=== PATIENT | male | born 1990 | race Caucasian/White ===

== ENCOUNTER 2017-11-05 19:22 | Emergency (ER) | payer MEDICAID, SELFPAY ==
[2017-11-05 19:24] VITALS: BP 129/74; PULSE 72; RESP 16; TEMP 36.9; O2SAT 97; BMI 27.1
--- NOTE | 2017-11-05 20:19 | ED.VISSUMM ---
- ER Visit Summary Date of Service: 11/05/17 Chief Complaint: Dental pain History of Present Illness: The patient is a 27 M with dental pain for several weeks in the right maxillary region. He has a broken tooth in the area. No swelling. No trouble breathing, talking, or swallowing. Physical Examination: Right maxillary molar fractured secondary to underlying decay. No sign of abscess. No trismus. No tongue elevation. Airway intact. No lymphadenopathy. Skin normal. Neck shows good range of motion. Test Results: None indicated. Emergency Department Course and Treatment: Patient will start a course of clindamycin. I will also prescribe a course of naproxen. He received 2 [place] here. I advised that we will not prescribe narcotics for this. Has follow-up with dental next week. Treatment Plan: As above Disposition: Discharged Impression: 1. Toothache This note was generated with [employer] dictation software. It may contain incorrect words, spelling, and punctuation that were not noted in review of the chart prior to signing ED Disposition - Plan for ED Patient: Chief Complaint: Dental Referrals: Carlo Callejas MD [Primary Care Provider] -
--- NOTE | 2017-11-05 20:21 | ED.DEP ---
ED Disposition - Plan for ED Patient: Chief Complaint: Dental Instructions: ED Tooth Pain Prescriptions: Naproxen [Naprosyn] 500 mg PO BID #14 tab Clindamycin HCl [Cleocin] 300 mg PO Q6H #40 cap Additional Instructions: your dentist
[2017-11-05] MEDS: Clindamycin HCl 150 MG Capsule 300 MG PO (20:29)
[2017-11-05] MEDS: HYDROcodone Bitartrate/Apap 5/325 Tablet PO (20:29)
[2017-11-05 20:32] VITALS: BP 132/86; PULSE 78; RESP 18; O2SAT 99
== END 2017-11-05 20:36 | disposition home or self-care (01) ==
LOC: ED 20:31
PROVIDERS: Emergency Provider Emergency Medicine; Family Provider Family Medicine; PCP Family Medicine
DX: K08.89 Other specified disorders of teeth and supporting structures (principal); K02.9 Dental caries, unspecified
CPT/HCPCS: 99283

== ENCOUNTER 2017-12-03 20:23 | Emergency (ER) | payer MEDICAID, SELFPAY ==
[2017-12-03 20:24] VITALS: BP 135/74; PULSE 67; RESP 16; TEMP 36.7; O2SAT 98; BMI 27.8
--- NOTE | 2017-12-03 22:47 | ED.VISSUMM ---
- ER Visit Summary Date of Service: 12/03/17 Chief Complaint: Right wrist laceration History of Present Illness: The patient is a 27 M presenting with laceration to his right wrist. Patient states that he was looking through a bag and he was not aware that there was a knife in the bag. It cut his right wrist. This was accidental. His tetanus is up-to-date. No other injuries. Physical Examination: Vitals are stable. Patient is afebrile. Alert no acute distress. HEENT exam is unremarkable. Lungs are clear and equal bilaterally. Heart is regular rate and rhythm. Extremities right lateral wrist 4 cm laceration, tendon function is normal, normal cap refill, normal pulses Skin is warm and dry. No focal neurologic deficit. Remainder of exam is unremarkable. Emergency Department Course and Treatment: Laceration was repaired under sterile conditions. Anesthetized with lidocaine, irrigated with saline. 5, 4-0 simple sutures were placed. Patient tolerated this well. Advised wound care instructions. Advised to follow-up with PCP. Advised return to ED for worsening complaints. Disposition: Discharge home Impression: Right wrist laceration, laceration repair This note was generated with [employer] dictation software. It may contain incorrect words, spelling, and punctuation that were not noted in review of the chart prior to signing ED Disposition - Plan for ED Patient: Chief Complaint: Laceration Instructions: ED Laceration Hand Referrals: Carlo Callejas MD [Primary Care Provider] -
--- NOTE | 2017-12-03 22:51 | ED.DCSUM_ITS ---
- ER Visit Summary Date of Service: 12/03/17 Chief Complaint: Right wrist laceration History of Present Illness: The patient is a 27 M presenting with laceration to his right wrist. Patient states that he was looking through a bag and he was not aware that there was a knife in the bag. It cut his right wrist. This was accidental. His tetanus is up-to-date. No other injuries. Physical Examination: Vitals are stable. Patient is afebrile. Alert no acute distress. HEENT exam is unremarkable. Lungs are clear and equal bilaterally. Heart is regular rate and rhythm. Extremities right lateral wrist 4 cm laceration, tendon function is normal, normal cap refill, normal pulses Skin is warm and dry. No focal neurologic deficit. Remainder of exam is unremarkable. Emergency Department Course and Treatment: Laceration was repaired under sterile conditions. Anesthetized with lidocaine, irrigated with saline. 5, 4- 0 simple sutures were placed. Patient tolerated this well. Advised wound care instructions. Advised to follow-up with PCP. Advised return to ED for worsening complaints. Disposition: Discharge home Impression: Right wrist laceration, laceration repair This note was generated with [employer] dictation software. It may contain incorrect words, spelling, and punctuation that were not noted in review of the chart prior to signing ED Disposition - Plan for ED Patient: Chief Complaint: Laceration Instructions: ED Laceration Hand Referrals: Carlo Callejas MD [Primary Care Provider] -
[2017-12-03 22:55] VITALS: RESP 16
== END 2017-12-03 22:56 | disposition home or self-care (01) ==
PROVIDERS: Emergency Provider Emergency Medicine; Family Provider Family Medicine; PCP Family Medicine
DX: S61.511A Laceration without foreign body of right wrist, initial encounter (principal); W26.0XXA Contact with knife, initial encounter; Y93.89 Activity, other specified; Y92.89 Other specified places as the place of occurrence of the external cause; Y99.8 Other external cause status
CPT/HCPCS: 12002; 99284

== ENCOUNTER 2018-02-16 15:38 | Emergency (ER) | payer MEDICAID, SELFPAY ==
[2018-02-16 15:40] VITALS: BP 126/78; PULSE 115; RESP 17; TEMP 37.3; O2SAT 96; BMI 27.8
[2018-02-16] MEDS: HYDROcodone Bitartrate/Apap 5/325 Tablet PO (16:02)
--- NOTE | 2018-02-16 16:02 | ED.VISSUMM ---
- ER Visit Summary Date of Service: 02/16/18 Chief Complaint: Laceration History of Present Illness: The patient is a [address] Callejas. His tetanus is up-to-date. Reports just prior to coming emergency department a storm door came down on his right arm and broke. He reports he has pain over his biceps Zeta 10 at worst and 7-10 currently. Is worsened by movement relieved by rest. Denies any paresthesias distally. Physical Examination: Vitals: Stable. Afebrile. General: Well-nourished and well-developed. Head: Normocephalic atraumatic. Neck: Supple, no lymphadenopathy. No JVD. Nontender. Cardiovascular: Regular rate and rhythm. No murmurs. Respiratory: No respiratory distress. Clear to auscultation bilaterally. Abdominal: Soft, nontender, nondistended, normal bowel sounds. No guarding, rebound, or peritoneal signs. Back: Nontender. Extremities: Contusion over his bicep. There are 4 1.5's jagged lacerations with loss of tissue that extended to subcutaneous tissue only. He also has a 3 cm superficial tissue loss to the thenar eminence on the right. He is neurovascular intact distally's. There is no active bleeding.. Skin: Normal color, no rash. Neurologic: Alert and oriented ?3. Cranial nerves II through XII are intact. Normal strength and sensation. Psych: Normal affect. Test Results: X-ray shows no foreign body. Emergency Department Course and Treatment: I discussed the patient treatment options and he has opted to let this heal by secondary intention. I feel that this is a reasonable course of action. Treatment Plan: Patient be discharged instructions keep the area clean and covered. Follow-up his primary care physician in 10-14 days if not improving. Disposition: To home in improved and stable condition. Impression: 1. Multiple lacerations right arm, not repaired. 2. Contusion right arm. This note was generated with [employer] dictation software. It may contain incorrect words, spelling, and punctuation that were not noted in review of the chart prior to signing ED Disposition - Plan for ED Patient: Disposition: Home or Assisted Living Chief Complaint: Laceration Instructions: ED Laceration Small Superf No Sutr Referrals: Carlo Callejas MD [Primary Care Provider] - 10-14 Days if not better
[2018-02-16 16:24] VITALS: PULSE 128; RESP 16; O2SAT 98
== END 2018-02-16 16:25 | disposition home or self-care (01) ==
LOC: ED 16:06
PROVIDERS: Emergency Provider Emergency Medicine; Family Provider Family Medicine; PCP Family Medicine
DX: S51.811A Laceration without foreign body of right forearm, initial encounter (principal); S40.021A Contusion of right upper arm, initial encounter; W25.XXXA Contact with sharp glass, initial encounter; Y93.89 Activity, other specified; Y92.89 Other specified places as the place of occurrence of the external cause; Y99.8 Other external cause status
CPT/HCPCS: 73060; 99282

== ENCOUNTER 2018-12-07 23:12 | Emergency (ER) | payer BC, SELFPAY ==
[2018-12-07 23:13] VITALS: BP 132/58; PULSE 65; RESP 18; TEMP 36.7; O2SAT 99; BMI 30.6
--- NOTE | 2018-12-07 23:24 | ED.DCSUM_ITS ---
History of Present Illness Chief Complaint: Abd Pain Informant: Patient Narrative: She stated last week he noticed some sharp pain in his bellybutton. Yesterday he noticed a little bit of a hernia bulge. He is never had that before. He was able to reduce it tonight when his girlfriend pointed out. He feels better now. Coming in for further evaluation of that. Never had this before. Current severity is mild. Past Medical History - Allergies and Home Meds Allergies/Adverse Reactions: Allergies acetaminophen [From Tylenol] Allergy (Verified 12/07/18 23:12) Rash cefaclor [From Ceclor] Allergy (Verified 12/07/18 23:12) Rash Primary Care Physician: Sasha Grant MD [Primary Care Provider] - Prior records reviewed: Yes Past Medical History: - - Viewed Surgical History: noncontributory Smoking Status: Smoker, status unknown Alcohol: None Drugs: None Review of Systems General: Denies: Chills, Fever, Sweats Eyes: Denies: Visual changes - bilaterally, Diplopia ENT: Denies: Rhinorrhea, Sore throat Cardiovascular: Denies: Chest pain, Palpitations Respiratory: Denies: Dyspnea, Cough, Dyspnea on exertion Gastrointestinal: Reports: Abdominal pain. Denies: Nausea, Vomiting, Diarrhea, Melena, Hematochezia Genitourinary: Denies: Dysuria, Hematuria, Frequency Musculoskeletal: Denies: Back pain, Extremity Pain Skin: Denies: Rash, Wounds Neurological: Denies: Headache, Weakness, Numbness Physical Exam Vital Signs/Narrative: Vital Signs Temp Pulse Resp BP Pulse Ox 12/07/18 23:13 98.1 F 65 18 132/58 H 99 General: Well nourished, Well developed, No Acute Distress Head: Normocephalic, Atraumatic Eyes: Perrl, EOMI ENT: Moist mucous membranes, No rhinorrhea Neck: Supple, Nontender Cardiovascular: Regular rate, Regular rhythm, No murmurs Respiratory: No distress, CTA bilaterally, Chest nontender Abdomen: Soft, Nontender, Nondistended, Normal bowel sounds Back: Nontender, Normal Inspection Extremities: Nontender, No edema Skin: Normal color, No rash Neurological: Alert, Oriented x3, Cranial nerves II-XII grossly intact, Normal Strength, Normal Sensation Psychological: Normal affect, Normal Mood Diagnostic/Tx/Re-eval - Medical Decision Making Patient's umbilicus appears normal. He stated that he reduced it. He is been able to reduce it therefore I taught him how to continue to do that. He will follow-up with general surgeon and try to avoid things that increases intra- abdominal pressure. ED Disposition - Plan for ED Patient: Disposition: [facility] Diagnosis: Umbilical hernia Instructions: What Is a Hernia? Referrals: Rashaad Rivera MD [STAFF PHYSICIAN] -
--- NOTE | 2018-12-07 23:29 | ED.RN ---
THIS NURSE REVIEWED D/C INSTRUCTIONS WITH PT AND VISITOR. PT VERBALIZED UNDERSTANDING OF INSTRUCTIONS. PT DENIES FURTHER NEEDS OR QUESTIONS AT THIS TIME. PT AMBULATES FROM ROOM ON OWN WITHOUT ASSISTANCE FROM STAFF
== END 2018-12-07 23:30 | disposition home or self-care (01) ==
PROVIDERS: Emergency Provider Emergency Medicine; Family Provider Internal Medicine; PCP Internal Medicine
DX: K42.9 Umbilical hernia without obstruction or gangrene (principal)
CPT/HCPCS: 99282

== ENCOUNTER 2020-07-15 09:58 | Emergency (ER) | payer MEDICAID, SELFPAY ==
[2020-07-15 09:59] VITALS: BP 162/81; PULSE 81; RESP 16; TEMP 35.8; O2SAT 100; BMI 29.4
--- NOTE | 2020-07-15 10:17 | EKG12_ITS ---
Test Reason : Blood Pressure : / mmHG Vent. Rate : 080 BPM Atrial Rate : 080 BPM P-R Int : 180 ms QRS Dur : 102 ms QT Int : 378 ms P-R-T Axes : 048 031 022 degrees QTc Int : 435 ms Normal sinus rhythm Normal ECG Confirmed by SIGRID MURRY, KELVIN ([id number]), international editorial producer CASSIE WINSTON ([id number]) on 07/19/2020 10:48:33 AM Referred By: RALF Confirmed By:KELVIN MATTA MD
--- NOTE | 2020-07-15 10:17 | CT_ITS ---
STUDY: CTA CHEST REASON FOR EXAM: Male, 30 years old. SOB/trouble taking full breath worse when supine, right back pain x 1 week, asthma. RADIATION DOSAGE (If Supplied By Facility): CTDIvol = ( 10.01 ) mGy, DLP = ( 515.65 ) mGycm TECHNIQUE: The examination was performed with the intravenous administration of IV 100mL Isovue-370. Post-processing of the angiographic images was performed, with multiplanar reformation and 3D reconstruction. Individualized dose optimization techniques were used for this CT. COMPARISON: None. FINDINGS: There are multiple intraluminal filling defects in branches of the right lower lobe pulmonary artery in keeping with pulmonary emboli. Smaller filling defects are seen in branches of the left lower lobe pulmonary artery Normal thoracic aorta and visualized great vessels. There is no demonstrated aortic dissection. Normal heart and pericardium. Normal mediastinum. Normal hilar regions. Normal visualized trachea and bronchi. The lungs are well expanded. Normal pulmonary parenchyma. Normal pleura. Normal chest wall structures. Normal osseous structures. Small hiatal hernia. CT/CTA Chest W/WO Contrast IMPRESSION: Pulmonary emboli in branches of both right and left lower lobe pulmonary arterial branches more prominent on the right side. Electronically Signed: Jaylan Huerta MD at 11:23 EST , Service support ,
--- NOTE | 2020-07-15 10:17 | ED.VIS.GEN ---
History of Present Illness Chief Complaint: General Illness Informant: Patient Narrative: 30-year-old male presenting for the evaluation of dyspnea. Patient states for about 2 weeks he has been experiencing intermittent pain in the right posterior chest and right mid axillary lower ribs area. Not worse with touch or movement. He states it does seem to come on when he takes a deep breath. He states he has not felt like he can take a satisfying breath. His symptoms are significantly worse at night when he lays down. During the day he states he generally feels okay. He went to urgent care last night was given prednisone as he has a history of asthma and told him that if he is not feeling better he should come to emergency to be seen. Patient states he works out regularly has not noticed a significant decrease in his ability to work out. No weight gain weight loss. No recent travel. No recent fever. Past Medical History - Allergies and Home Meds Allergies/Adverse Reactions: Allergies acetaminophen [From Tylenol] Allergy (Verified 07/15/20 09:59) Rash cefaclor [From Ceclor] Allergy (Verified 07/15/20 09:59) Rash Primary Care Physician: Sasha Grant MD [Primary Care Provider] - Past Medical History: - - Asthma Surgical History: noncontributory Lives: Spouse/ Significant Other Smoking Status: Never smoker Drugs: None Review of Systems General: Denies: Chills, Fever, Sweats Eyes: Denies: Visual changes - bilaterally, Diplopia ENT: Denies: Rhinorrhea, Sore throat Cardiovascular: Reports: Chest pain. Denies: Palpitations Respiratory: Reports: Dyspnea. Denies: Cough, Dyspnea on exertion Gastrointestinal: Denies: Abdominal pain, Nausea, Vomiting, Diarrhea, Melena, Hematochezia Genitourinary: Denies: Dysuria, Hematuria, Frequency Musculoskeletal: Denies: Back pain, Extremity Pain Skin: Denies: Rash, Wounds Neurological: Denies: Headache, Weakness, Numbness Physical Exam Vital Signs/Narrative: Vital Signs Temp Pulse Resp BP Pulse Ox 07/15/20 09:59 96.5 F L 81 16 162/81 H 100 Inital Vital Signs reviewed: Yes General: Well nourished, Well developed, No Acute Distress Head: Normocephalic, Atraumatic Eyes: Perrl, EOMI ENT: Moist mucous membranes, No rhinorrhea Neck: Supple, Nontender Cardiovascular: Regular rate, Regular rhythm, No murmurs Respiratory: No distress, CTA bilaterally, Chest nontender Abdomen: Soft, Nontender, Nondistended, Normal bowel sounds Back: Nontender, Normal Inspection Extremities: Nontender, No edema Skin: Normal color, No rash Neurological: Alert, Oriented x3, Cranial nerves II-XII grossly intact, Normal Strength, Normal Sensation Psychological: Normal affect, Normal Mood Diagnostic/Tx/Re-eval Clinical Impression(s) from Imaging Studies Chest CTA 07/15/20 10:17 IMPRESSION: Pulmonary emboli in branches of both right and left lower lobe pulmonary arterial branches more prominent on the right side. Electronically Signed: Jaylan Huerta MD at 11:23 EST , Service support , Laboratory Last Values WBC 11.0 K/mm3 (4.4-11.0) 07/15/20 10:20 RBC 4.61 M/mm3 (4.6-6.2) 07/15/20 10:20 Hgb 14.1 g/dL (13.0-16.5) 07/15/20 10:20 Hct 43.1 % (40-54) 07/15/20 10:20 MCV 93.5 fL (80-94) 07/15/20 10:20 MCH 30.6 pg (27.0-32.0) 07/15/20 10:20 MCHC 32.7 g/dL (32-36) 07/15/20 10:20 RDW Std Deviation 44.2 fl (35.1-43.9) H 07/15/20 10:20 RDW Coeff of Finesse 12.8 % (11.6-14.6) 07/15/20 10:20 Plt Count 211 K/mm3 (150-450) 07/15/20 10:20 MPV 10.1 fl (6.2-12.0) 07/15/20 10:20 Sodium 141 mmol/L (136-145) 07/15/20 10:20 Potassium 3.3 mmol/L (3.5-5.1) L 07/15/20 10:20 Chloride 107 mmol/L (98-107) 07/15/20 10:20 Carbon Dioxide 30.0 mmol/L (21.0-32.0) 07/15/20 10:20 Anion Gap 4 (5-15) L 07/15/20 10:20 BUN 12 mg/dL (7-18) 07/15/20 10:20 Creatinine 1.00 mg/dL (0.70-1.30) 07/15/20 10:20 Estim Creat Clear Calc 115.04 ml/min 07/15/20 10:20 Est GFR (MDRD) Af Amer 113 mL/min (>60) 07/15/20 10:20 Est GFR (MDRD) Non-Af 94 mL/min (>60) 07/15/20 10:20 BUN/Creatinine Ratio 12.1 RATIO (10-20) 07/15/20 10:20 Glucose 77 mg/dL (74-106) 07/15/20 10:20 Calcium 9.0 mg/dL (8.5-10.1) 07/15/20 10:20 Total Bilirubin 0.60 mg/dL (0.20-1.00) 07/15/20 10:20 AST 48 U/L (15-37) H 07/15/20 10:20 ALT 102 U/L (16-61) H 07/15/20 10:20 Alkaline Phosphatase 110 U/L (45-117) 07/15/20 10:20 Troponin I < 0.015 ng/mL (<0.045) 07/15/20 10:20 Total Protein 7.8 g/dL (6.4-8.2) 07/15/20 10:20 Albumin 4.1 g/dL (3.2-5.0) 07/15/20 10:20 Globulin 3.7 g/dL (2.2-4.2) 07/15/20 10:20 Albumin/Globulin Ratio 1.1 RATIO (0.9-2.4) 07/15/20 10:20 - EKG Initial EKG Interpretation: Sinus Rhythm - EKG demonstrates normal sinus rhythm at a rate of 80 without concerning features of ACS or ectopy. - Medical Decision Making Patient's labs are rather unremarkable. EKG no demonstrates no evidence of ACS or right heart strain. CTA of the chest demonstrates bilateral pulmonary embolisms. Patient is satting 99% on room air. He is not having any increased work of breathing. He does not know of any genetic predisposition to DVT/PE and he denies any current risk factors such as travel hormonal use or recent surgeries etc. Patient will be started on Eliquis. He will follow-up with his doctor return if worsening or concerns ED Disposition - Plan for ED Patient: Disposition: Home or Assisted Living Diagnosis: Pulmonary embolism Prescriptions: Apixaban [Eliquis] 5 mg PO BID #74 tab Prescription Printed Referrals: Sasha Grant MD [Primary Care Provider] - 1 Week
--- NOTE | 2020-07-15 10:19 | NURSING ---
NO OLD EKGS
[2020-07-15 10:30] LABS: Hematocrit 43.1 % (40-54); Hemoglobin 14.1 g/dL (13.0-16.5); Mean Corp Hgb Conc 32.7 g/dL (32-36); Mean Corpuscular Hgb 30.6 pg (27.0-32.0); Mean Corpuscular Volume 93.5 fL (80-94); Mean Platelet Vol. 10.1 fl (6.2-12.0); Platelet Count 211 K/mm3 (150-450); RBC Distribution Width CV 12.8 % (11.6-14.6); RBC Distribution Width SD 44.2 fl (35.1-43.9); Red Blood Count 4.61 M/mm3 (4.6-6.2)
[2020-07-15 10:52] LABS: ALB/GLOB Ratio 1.1 RATIO (0.9-2.4); AST(SGOT) 48 U/L (15-37); Alanine Aminotransfer ALT/SGPT 102 U/L (16-61); Albumin, Serum 4.1 g/dL (3.2-5.0); Alkaline Phosphatase 110 U/L (45-117); Anion Gap 4 (5-15); BUN 12 mg/dL (7-18); BUN/Creat Ratio 12.1 RATIO (10-20); Chloride 107 mmol/L (98-107); EST Glomerular Filtration Rate 94 mL/min (>60); Est Glom Filt Rate - Afr Amer 113 mL/min (>60); Estimated Creatinine Clearance 115.04 ml/min; Globulin 3.7 g/dL (2.2-4.2); Glucose 77 mg/dL (74-106); Potassium 3.3 mmol/L (3.5-5.1); Protein, Total 7.8 g/dL (6.4-8.2); Sodium Level 141 mmol/L (136-145)
[2020-07-15 12:20] VITALS: BP 121/67; PULSE 66; RESP 16; O2SAT 97
[2020-07-15 12:40] VITALS: BP 121/67; PULSE 76; RESP 18; O2SAT 99
== END 2020-07-15 12:43 | disposition home or self-care (01) ==
PROVIDERS: Emergency Provider Emergency Medicine; PCP Internal Medicine
DX: I26.99 Other pulmonary embolism without acute cor pulmonale (principal); J45.909 Unspecified asthma, uncomplicated
CPT/HCPCS: 71275; 80053; 84484; 85027; 87426; 93005; 99284; Q9967; A4216

== ENCOUNTER 2022-01-18 19:15 | Emergency (ER) | payer MEDICAID, SELFPAY ==
[2022-01-18 19:17] VITALS: BP 129/63; PULSE 83; RESP 16; TEMP 36.7; O2SAT 98; BMI 27.1
--- NOTE | 2022-01-18 19:24 | EX.ED.UPPERE ---
HPI History of Present Illness Chief Complaint: Upper Extremity Injury Detail of Chief Complaint: Ulnar side left wrist this morning., 0900 Informant: patient Occured/Mechanism Mechanism/Context: Yes blunt trauma Comment: Struck with a mallet ask Onset/Context/Timing Onset: Today (899) Context: Sudden Onset Timing: Continuous Quality of Pain: Aching and Throbbing Location: Initially ulnar side of wrist now involves the hand and forearm Current Severity: Mild Maximum Severity: Severe Worsened by: Movement and use Relieved by: Better with elevation and rest Associated Symptoms Associated Symptoms: Negative for Parasthesia, Weakness or Loss of Funtion Narrative Narrative: Patient is a 31-year-old male with hepatitis C and history of pulmonary embolus who presents after blunt trauma to his left wrist. He is right-hand dominant. Tetanus is not up-to-date. He is presently on antiviral to treat his hepatitis C. He is no longer on an anticoagulant. He denies paresthesia, anesthesia or motor weakness. Tetanus Immunization: Unknown Prior similar symptoms: No Recent Illness/Hospitalization: No PFSH PFSH Medical History no medical history no medical history (There is a history of pulmonary embolus and hepatitis C) Home Medications apixaban 5 mg tablet 5 mg PO BID #74 tabs 07/15/20 [Rx Last Taken Unknown] Allergy/AdvReac Type Severity Reaction Status Date / Time acetaminophen [From Tylenol] Allergy Rash Verified 01/18/22 19:19 cefaclor [From Ceclor] Allergy Rash Verified 01/18/22 19:19 Social History (Updated 01/18/22 @ 19:[address] Avery Riley MD) household members: spouse Smoking Status: Never smoker substance use type: does not use ROS ROS ED Constitutional Constitutional ED: Denies chills, fever(s) or subjective Integumentary Reports other Details: Serration dorsal surface left wrist near the distal ulna ; Denies abscess, Abrasions or rash Neurologic Neurologic: Denies paresthesias or weakness Hematologic/Lymphatic Hematologic/Lymphatic: Denies easy bleeding or easy bruising EXAM Physical Exam Const Vital Signs: 01/18/22 19:17 Temperature 98.0 F Temperature Source Temporal Pulse Rate 83 Respiratory Rate 16 Blood Pressure 129/63 H Blood Pressure Mean 85 Pulse Ox 98 Oxygen Delivery Method Room Air Positive well nourished and well developed General Appearance ED: well developed and NAD; Negative for cyanotic or diaphoretic HEENT Reports moist mucous membranes normocephalic and atraumatic Eyes PERRL and EOMs intact bilaterally Neck full ROM Resp normal respiratory effort Cardio regular rate and regular rhythm Extremity Negative for normal to inspection or full ROM Extremity Narrative: There is soft tissue swelling noted over the left wrist. There is pain no patient over the carpal bones and distal ulna. This is in proximity to the trauma. There is a superficial laceration that is approximately 4 to 5 mm in length. This was not sutured. Median, radial and ulnar function intact. The extensor minimized, extensor commonest and extensor Insite tendon are functionally intact. Cap refill is normal. Sensation is normal. There is no subungual hematoma noted. Neuro oriented x3, CN's II-XII intact bilaterally, no focal motor deficits and no sensory deficits noted Psych mental status grossly normal Skin General Skin Exam: Negative for petechiae Lesions: no lesions Rashes: no rashes Trauma: laceration linear, motor nerve function intact and sensation intact; Negative for no lacerations or abrasions MDM MDM MDM Narrative Medical decision making narrative: Tetanus was updated and x-ray was obtained to evaluate for fracture versus contusion. Patient was offered pain medicine, which she declined. Radiography Diagnostic Testin views of the left wrist was in interpreted by me at 1931 as negative for fracture. There is no foreign body. There is no subcutaneous air noted. The x-ray is normal Discharge Plan Triage Chief Complaint: Upper Extremity Injury ED Provider: Avery Riley Dx/Rx/DC Orders Clinical Impression: Laceration of left wrist, Contusion of left wrist, initial encounter Instructions: ED Contusion, Upper Extremity, ED Laceration Small or ... Prescriptions: No Action apixaban 5 MG tablet 5 mg PO BID Qty: 74 0RF Rx Instructions: 10 mg twice a day for the first week. Then 5 mg twice a day. Primary Care Provider: Sasha Grant Referrals: Sasha Grant MD [Primary Care Provider] - 3-5 Days if not improving Activity Restrictions/Additional Instructions: 1. You may take either 4 ibuprofen tablets every 8 hours for the next 3 to 5 days or 2 Aleve tablets every 12 hours for the next 3 to 5 days. 2. Elevate your left wrist is much as possible 3. Apply ice 6-10 times a day 4. Keep wound clean and dry Disposition Disposition: Home, Self Care
--- NOTE | 2022-01-18 19:25 | RAD_ITS ---
STUDY: X-RAY - LEFT WRIST REASON FOR EXAM: Male, 31 years old. Hit in left hand with pickax. Laceration. TECHNIQUE: 3 view(s) of the wrist were obtained. COMPARISON: None. FINDINGS: Normal visualized distal radius and ulna. Normal radiocarpal articulation. Normal distal radioulnar articulation. Normal carpal bones. Normal carpal articulations. Normal carpometacarpal articulation of the thumb. Normal second through fifth carpometacarpal articulations. Normal visualized metacarpal bones. The soft tissue structures are unremarkable. No foreign bodies. RAD/Wrist min 3 Views IMPRESSION: Normal x-ray examination of the left wrist. Electronically Signed: Albert Morse DO at 19:52 EDT Reading Location ID and State: [id number] Tel [phone], Service support ,
[2022-01-18 19:33] VITALS: RESP 16
== END 2022-01-18 19:45 | disposition home or self-care (01) ==
LOC: ED 19:47
PROVIDERS: Emergency Provider Emergency Medicine; PCP Internal Medicine; Visit Provider Emergency Medicine
DX: S61.512A Laceration without foreign body of left wrist, initial encounter (principal); B19.20 Unspecified viral hepatitis C without hepatic coma; Z86.711 Personal history of pulmonary embolism; W27.0XXA Contact with workbench tool, initial encounter
CPT/HCPCS: 73110; 99282

== ENCOUNTER → 2024-04-27 | Outpatient (CLI) | payer SELFPAY ==
--- NOTE | 2024-04-27 16:12 | RAD_ITS ---
INDICATION: cough EXAMINATION/TECHNIQUE: X-RAY - XR Chest 2 Views COMPARISON: March 01, 2013 FINDINGS: LINES/DEVICES: None. LUNGS: There is a right upper lobe infiltrate. No pneumothorax. MEDIASTINUM AND CARDIOVASCULAR STRUCTURES: Cardiac silhouette not enlarged. Central airways and mediastinal contour are unremarkable. BONES AND SOFT TISSUES: Unremarkable. RAD/Chest PA and Lateral IMPRESSION: Right upper lobe infiltrate. Electronically Signed: Manuel Marroquin DO at 17:12 EST Reading Location ID and State: [facility] / [place] Tel [phone], Service support ,
== END | disposition home or self-care (01) ==
PROVIDERS: PCP Internal Medicine; Referring Provider Physician Assistant; Visit Provider Physician Assistant
DX: R05.9 Cough, unspecified (principal)
CPT/HCPCS: 71046

== ENCOUNTER 2025-02-15 19:17 | Emergency (ER) | payer MEDICAID, SELFPAY ==
[2025-02-15 19:17] VITALS: BP 87/30; PULSE 48; RESP 18; TEMP 36.6; O2SAT 99
[2025-02-15 19:29] VITALS: BP 105/62; PULSE 66; RESP 16; O2SAT 100; BMI 27.7
[2025-02-15 19:36] VITALS: BP 117/72; PULSE 64; RESP 15; O2SAT 97
--- NOTE | 2025-02-15 20:00 | CT_ITS ---
PROCEDURE: CT BRAIN/HEAD, SINUS/FACIAL BONE WITHOUT CONTRAST 02/15/2025 REASON FOR EXAM: HEAD INJURY; INJURY TECHNIQUE: CT brain/head and sinus/facial bone without contrast. Coronal and Sagittal reconstruction series were provided. One or more dose reduction techniques were used (e.g., Automated exposure control, adjustment of the mA and/or kV according to patient size, use of iterative reconstruction technique. RADIATION DOSE SUMMARY: DLP: 1631.44 mGycm COMPARISON: None available. FINDINGS: No acute intracranial hemorrhage, extra-axial collection, mass effect or evidence of acute infarct. Ventricular and sulcal size and configuration are within normal limits. Nonspecific curvilinear cortical/gyral calcification in the posterior right temporal lobe. Mild left frontal/supraorbital scalp contusion and laceration. The globes appear intact. No intraorbital hematoma or emphysema. No acute skull base, calvarial or maxillofacial bone fracture. Mild peripheral mucosal thickening throughout the paranasal sinuses, without fluid levels. No mastoid effusions. CT/Sinus/Facial Bone IMPRESSION: 1. No acute intracranial abnormality. 2. Mild left frontal/supraorbital scalp contusion and laceration. 3. No acute maxillofacial fracture or orbital injury. Reading Location: [id number]
--- NOTE | 2025-02-15 20:00 | CT_ITS ---
PROCEDURE: CT BRAIN/HEAD, SINUS/FACIAL BONE WITHOUT CONTRAST 02/15/2025 REASON FOR EXAM: HEAD INJURY; INJURY TECHNIQUE: CT brain/head and sinus/facial bone without contrast. Coronal and Sagittal reconstruction series were provided. One or more dose reduction techniques were used (e.g., Automated exposure control, adjustment of the mA and/or kV according to patient size, use of iterative reconstruction technique. RADIATION DOSE SUMMARY: DLP: 1631.44 mGycm COMPARISON: None available. FINDINGS: No acute intracranial hemorrhage, extra-axial collection, mass effect or evidence of acute infarct. Ventricular and sulcal size and configuration are within normal limits. Nonspecific curvilinear cortical/gyral calcification in the posterior right temporal lobe. Mild left frontal/supraorbital scalp contusion and laceration. The globes appear intact. No intraorbital hematoma or emphysema. No acute skull base, calvarial or maxillofacial bone fracture. Mild peripheral mucosal thickening throughout the paranasal sinuses, without fluid levels. No mastoid effusions. CT/Brain/Head without Contrast IMPRESSION: 1. No acute intracranial abnormality. 2. Mild left frontal/supraorbital scalp contusion and laceration. 3. No acute maxillofacial fracture or orbital injury. Reading Location: [id number]
--- NOTE | 2025-02-15 20:05 | EDS_ITS ---
HPI History of Present Illness Chief Complaint: Head Injury Informant: patient and spouse/S.O. Narrative Narrative: Baseball injury left eye prior to arrival. 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 Ball directly hit above left eye. Laceration noted. Bleeding controlled. Headache. No loss of conscious. No blood thinners. Tetanus unknown. Has had sutures to the right brow in the past. No other injuries. Tetanus Immunization: Unknown Prior similar symptoms: Yes PFSH PFSH Medical History Hepatitis C Right pulmonary infiltrate on CXR Allergy/AdvReac Type Severity Reaction Status Date / Time acetaminophen (From Tylenol) Allergy Rash Verified 02/15/25 19:18 cefaclor (From Ceclor) Allergy Rash Verified 02/15/25 19:18 Family History no significant family his Surgical History Hx of tonsillectomy Social History household members: spouse Smoking Status: Current every day smoker tobacco type: smokeless tobacco substance use type: does not use ROS ROS ED Constitutional Constitutional ED: Denies fever(s) Eyes Eyes: Denies blurry vision, change in vision or other Cardiovascular Cardiovascular: Denies chest pain Respiratory/Chest Respiratory/Chest: Denies cough Gastrointestinal Gastrointestinal: Denies diarrhea or vomiting Musculoskeletal Musculoskeletal: Denies none Integumentary Reports wounds; Denies rash Neurologic Neurologic: Reports headache(s); Denies weakness EXAM Physical Exam Const Vital Signs: 02/15/25 19:17 02/15/25 19:29 02/15/25 19:29 Temperature 98 F Temperature Source Temporal Pulse Rate 48 L 66 Respiratory Rate 18 16 Respiratory Effort Normal Respiratory Depth Normal Respiratory Pattern Normal Blood Pressure 87/30 L 105/62 Blood Pressure Mean 49 76 Pulse Ox 99 100 Oxygen Delivery Method Room Air Room Air Room Air 02/15/25 19:36 02/15/25 20:14 02/15/25 21:00 Temperature Temperature Source Pulse Rate 64 63 68 Respiratory Rate 15 14 19 H Respiratory Effort Respiratory Depth Respiratory Pattern Blood Pressure 117/72 118/68 126/76 H Blood Pressure Mean 87 84 92 Pulse Ox 97 100 100 Oxygen Delivery Method Room Air Room Air Room Air 02/15/25 21:49 Temperature 98 F Temperature Source Pulse Rate 61 Respiratory Rate 18 Respiratory Effort Respiratory Depth Respiratory Pattern Blood Pressure 126/76 H Blood Pressure Mean 92 Pulse Ox 99 Oxygen Delivery Method Positive well nourished and well developed Constitutional Narrative: GCS 15. General Appearance ED: well developed HEENT HEENT Narrative: 4 cm laceration above left eye medial aspect of brow there is no active bleeding. normocephalic and atraumatic Eyes EOMs intact bilaterally General Eye ED: Yes normal appearance of both eyes and other Other Details: No proptosis or entrapment. Neck full ROM Resp normal respiratory effort and normal air movement Cardio regular rate and regular rhythm GI soft to palpation Extremity normal to inspection and full ROM Neuro oriented x3 Skin no rashes or lesions noted and no wounds MDM MDM MDM Narrative Medical decision making narrative: Interventions / MDM: Differential diagnosis: Head injury, facial laceration Diagnosis considered but do not suspect: Fracture, intracranial hemorrhage however CT is negative. My EKG interpretation: N/A Imaging independently reviewed and interpreted by myself: CT brain: No intracranial hemorrhage. CT facial bones: No fracture. External documents reviewed: N/A Test considered but not ordered:N/A ED course: High velocity injury to left brow and laceration. Reports headache. Tetanus updated. Trauma scans brain and facial bones ordered. Will prep for laceration repair. CT images were negative. Laceration repair: Verbal consent. Normal sterile conditions. 2 cc 1% lidocaine used for left supraorbital block through the wound. Good analgesia was performed. Wound was cleansed with normal saline with 4 x 4. Close reevaluation has stellate laceration medial aspect of the wound. Initial corner 6-0 nylon stitch was placed in this area to help with good approximation. Additional single 6-0 stitch was placed to the vertical wound above. Additional 7, 6-0 nylon simple interrupted sutures used to close the wound with good approximation. Bacitracin was placed by myself. Patient tolerated the procedure well. Wound care discussed with patient and family. Outpatient follow-up with his doctor or plastic surgery as given to him in 5 to 7 days. I did discuss with him the possibility increasing ecchymosis to the left eye. Re-evaluation: stable Disposition discussed with patient/family/significant other: Patient and family Case discussed with consulting clinician: N/A This note was generated with [employer]ot[employer] software. It may contain incorrect words, spelling, and punctuation that were not noted in checking the note before signing. Radiography Diagnostic Testing: Clinical Impression(s) from Imaging Studies Brain CT 02/15/25 20:00 IMPRESSION: 1. No acute intracranial abnormality. 2. Mild left frontal/supraorbital scalp contusion and laceration. 3. No acute maxillofacial fracture or orbital injury. Reading Location: [facility] Facial/Sinus 02/15/25 20:00 IMPRESSION: 1. No acute intracranial abnormality. 2. Mild left frontal/supraorbital scalp contusion and laceration. 3. No acute maxillofacial fracture or orbital injury. Reading Location: [facility] Discharge Plan Triage Chief Complaint: Head Injury ED Provider: Chun Odom Dx/Rx/DC Orders Clinical Impression: Laceration of eyebrow, left, CHI (closed head injury) Instructions: ED Head Injury (Adult), ED FACIAL LACERATION Suture Tape Primary Care Provider: Sasha Grant Referrals: Sasha Grant MD [Primary Care Provider] - 5-7 Days Alexis Dominique MD [Med Staff - Active Staff] - 5-7 Days Activity Restrictions/Additional Instructions: CT brain/facial bones negative. Total of 9 sutures were placed, 1 corner suture placed medial aspect of the wound. Wound care as discussed. Follow-up in 5 to 7 days for wound check and suture removal. Print Language: Greek Disposition Disposition: Home, Self Care Discharge Date/Time: 02/15/25 21:52
[2025-02-15] MEDS: Lidocaine 1% (20 ml mdv) 20 ML Vial INFILT (20:06)
[2025-02-15 20:14] VITALS: BP 118/68; PULSE 63; RESP 14; O2SAT 100
--- OUTSIDE RECORDS SUMMARY | 2025-02-15 20:18 | XMS RPT_ITS | CCD ---
Author Organization [facility] ELL TUTOR [facility] Care Team Providers Care Vortex Operator Name Role Phone Work Care Unavailable Unavailable Pierre Jones Unavailable Unavailable No Family Physician given Unavailable Unawilliam mak Work Care Unavailable Unavailable PROVIDER, UNKNOWN Referring Unavailable No, PCP Primary Care Unavailable PROVIDER, UNKNOWN Attending Unavailable BRENDA, [facility] Attending Unabianca GUTIERREZ, [facility] Primary Care Unava ludivina GUTIERREZ, [facility] Admitting Merrill Carey MD Primary Care Provider [phone] Merrill Velasquez MD Primary Care Provider [phone] Merrill Velasquez MD Primary Care Provider [phone] MERRILL VELASQUEZ Attending Unavailable MERRILL VELASQUEZ Primary Care Unavailable MONICA GALO Referring Unavailable MERRILL VELASQUEZ Primary Care Unavailable MONICA GALO Referring Unavailable MERRILL VELASQUEZ Primary Care Unavailable MERRILL VELASQUEZ Primary Care Unavailable MERRILL VELASQUEZ Primary Care Unavailable MONICA GALO Attending Unavailable MONICA GALO Referring Unavailable MERRILL VELASQUEZ Primary Care Unavailable MONICA GALO Referring Unavailable MERRILL VELASQUEZ Referring Unavailable MERRILL VELASQUEZ Primary Care Unavailable MERRILL VELASQUEZ Attending Unavailable MERRILL VELASQUEZ Primary Care Unavailable MERRILL VELASQUEZ Referring Unavailable MERRILL VELASQUEZ Primary Care Unavailable MERRILL VELASQUEZ Referring Unavailable MERRILL VELASQUEZ Primary Care Unavailable Merrill Velasquez MD Primary Care Provider Junior Humphreys Attending Unavailable Sasha Grant Referring Unavailable Sasha Grant Primary Care Unavailable Sasha Grant Primary Care Unavailable Junior Humphreys Referring Unavailable Junior Humphreys Attending Unavailable Allergies Allergy Classification Reported Allergen(s) Allergy Type Date of Onset Reaction(s) Facility Cephalosporins (antibiotic) (1 source) Cefaclor Drug Allergy [facility] Repository (18 sources) Acetaminophen; Translations: [ACETAMINOPHEN] Drug Allergy 07-15-2020 [facility] (18 sources) Cefaclor; Translations: [CEFACLOR] Drug Allergy 08-17-2005 [facility] Work Phone: (1 source) Acetaminophen Drug Allergy 04-27-2024 [facility] Repository (1 source) Cefaclor Drug Allergy 04-27-2024 [facility] Repository Medications Current Medications Medication Drug Class(es) Dates Sig (Normalized) Sig (Original) cyanocobalamin, vitamin B-12, (VITAMIN B-12 ORAL) (4 sources) cyanocobalamin, vitamin B-12, (VITAMIN B-12 ORAL) Take by mouth. Active cyanocobalamin, vitamin B-12, (VITAMIN B-12 ORAL) Take by mouth. 0 Active Comment on above: Take by mouth. Mometasone-Formoterol (Dulera) 100-5 mcg/actuation HFA aerosol inhaler (1 source) Start: 01-18-2022 Mometasone-Formoterol (Dulera) 100-5 mcg/actuation HFA aerosol inhaler Active 2 INH INHALATION DAILY January 18, 2022 12:00am multivitamin tablet (16 sources) Start: 09-30-2019 take 1 tablet by mouth once daily multivitamin tablet Take 1 tablet by mouth once daily. 30 tablet 09/30/2019 Active Start: 09-30-2019 take 1 tablet by olinda th once daily multivitamin tablet Take 1 tablet by mouth once daily. 30 tablet 0 09/30/2019 Active Comment on above: Take 1 tablet by olinda th once daily. multivitamin with minerals (MEN'S ONE DAILY) tablet (4 sources) take 1 tablet by mouth once daily, then take 1 tablet by mouth once daily multivitamin with minerals (MEN'S ONE DAILY) tablet Take 1 tablet by mouth once daily. Active take 1 tablet by olinda th once daily, then take 1 tablet by mouth once daily multivitamin with minerals (MEN'S ONE DA SHAQUILLE) tablet Take 1 tablet by mouth once daily. 0 Active Comment on above: Take 1 tablet by olinda th once daily. omega-3 fatty acids/fish oil (FISH OIL OMEGA 3-6-9 ORAL) (4 sources) omega-3 fatty ac ids/fish oil (FISH OIL OMEGA 3-6-9 ORAL) Take by mouth. Active omega-3 fatty ac ids/fish oil (FISH OIL OMEGA 3-6-9 ORAL) Take by mouth. 0 Active Comment on above: Take by mouth. Completed/Discontinued Medications Medication Drug Class(es) Dates Sig (Normalized) Sig (Original) [id number] 200 actuat albuterol 0.09 mg/actuat metered dose inhaler (17 sources) beta2-Adrenergic Agonist Start: 06-29-2021 End: 12-31-2022 take 2 puff(s) by inhalation every four hours as needed albuterol HFA (PROVENTIL HFA, VENTOLIN HFA) 90 mcg/actuation inhaler Inhale 2 Puffs as instructed every 4 hours as needed. 8.5 g 3 06/29/2021 12/31/2022 Discontinued Comment on above: Inhale 2 Puffs as in structed every 4 hours as needed. erythromycin 0.005 mg/mg ophthalmic ointment (4 sources) Macrolide, Macrolide Antimicrobial Start: 03-19-2022 End: 08-13-2022 erythromycin (ROMYCIN) 5 mg/gram (0.5 %) ophthalmic ointment Indications: Irritation of eyelid Use 1 application in the right eye three times daily. 3.5 g 0 03/19/2022 08/13/2022 Discontinued Comment on above: Use 1 application in the right eye three times daily. 60 actuat formoterol fumarate 0.005 mg/actuat / mometasone furoate 0.1 mg/actuat metered dose inhaler (17 sources) Corticosteroid, beta2-Adrenergic Agonist Start: 06-12-2021 End: 12-31-2022 take 2 puff(s) by inhalation twice daily mometasone-formote rol (DULERA) 100-5 mcg/actuation inhaler Inhale 2 Puffs as instructed twice daily. 13 g 5 06/12/2021 12/31/2022 Discontinued Comment on above: Inhale 2 Puffs as in structed twice daily. sofosbuvir 400 mg / velpatasvir 100 mg oral tablet (10 sources) Hepatitis C Virus NS5A Inhibitor, Hepatitis C Virus Nucleotide Analog NS5B Polymerase Inhibitor Start: 10-17-2021 End: 08-13-2022 take 1 tablet by mouth once daily sofosbuvir-velpata svir (EPCLUSA) 400-100 mg Take one tablet by mouth, once daily same time of day 28 tablet 2 10/17/2021 08/13/2022 Discontinued Comment on above: Take one tablet by m out, once daily same time of day Problems Active Problems Problem Classification Problem Date Documented Da te Episodic/Chronic Abdominal hernia (1 source) Umbilical hernia; Translations: [Umbilical hernia without obstruction or gangrene] Episodic Allergic reactions (2 sources) Allergy status to other antibiotic agents status; Translations: [Allergy status to other antibiotic agents status] Onset: 09-05-2018 Episodic Asthma (18 sources) Mild intermittent asthma; Translations: [Mild intermittent asthma, uncomplicated] Onset: 10-20-2019 06-29-2021 Chronic Disorders of teeth and jaw (2 sources) Dental caries, unspecified; Translations: [Dental caries, unspecified] Onset: 09-05-2018 Episodic Disorders of teeth and jaw (2 sources) Other specified disorders of teeth and supporting structures; Translations: [Other specified disorders of teeth and supporting structures] Onset: 09-05-2018 Fever of unknown origin (2 sources) Fever, unspecified; Translations: [Fever, unspecified] Onset: 09-05-2018 Episodic Malaise and fatigue (2 sources) Fatigue; Translations: [Other fatigue] Onset: 01-02-2023 12-31-2022 Episodic Open wounds of extremities (1 source) Laceration of left wrist; Translations: [Laceration without foreign body of left wrist, initial encounter] Episodic Other lower respiratory disease (2 sources) Dyspnea; Translations: [Dyspnea, unspecified] Episodic Other lower respiratory disease (1 source) Other nonspecific abnormal finding of lung field; Translations: [Other nonspecific abnormal finding of lung field] Onset: 05-06-2024 Episodic Pulmonary heart disease (4 sources) Pulmonary embolism; Translations: [Other pulmonary embolism without acute cor pulmonale] Onset: 08-14-2022 Episodic Superficial injury; contusion (1 source) Contusion of left wrist; Translations: [Contusion of left wrist, initial encounter] Episodic Unclassified (1 source) Unknown / UNK(Unknown) Onset: 04-22-2018 Unclassified (1 source) Onset: 06-20-2017 Unclassified (1 source) Cough, unspecified; Translations: [Cough, unspecified] Onset: 05-18-2024 Past or Other Problems Problem Classification Problem Date Documented Da te Episodic/Chronic Hepatitis (20 sources) Chronic hepatitis C; Translations: [Chronic viral hepatitis C] Onset: 10-20-2019 Resolved: 08-14-2022 Chronic Other infections; including parasitic (5 sources) History of hepatitis C; Translations: [Personal history of other infectious and parasitic diseases] Onset: 08-14-2022 Episodic Other infections; including parasitic (1 source) Personal history of other infectious and parasitic diseases; Translations: [History of hepatitis C] Onset: 08-14-2022 Episodic Other injuries and conditions due to external causes (1 source) Injury of free lower limb; Translations: [Unspecified injury of unspecified lower leg, initial encounter] Onset: 10-26-2005 Resolved: 06-29-2021 06-29-2021 Episodic Other lower respiratory disease (1 source) Dyspnea, unspecified; Translations: [Dyspnea, unspecified type] Onset: 08-14-2022 Episodic Unclassified (1 source) LACERATION OF RIGHT BICEP~ Onset: 04-22-2018 Results Test Name Value Interpretation Reference Range Facility Chest PA and Lateralon 04-27 Chest PA and Lateral [facility] Services [address] [place] [address] Chest PA and Lateral MR#: [id number] Acct: [id number] Name: FRANCIS FAJARDO Rep #: [id number] : 1990 M 34 From: Manuel Marroquin DO PCP: Dr. Sasha Grant MD Status: [facility] Study: Chest PA and Lateral Date of Exam: 04/27/24 Exam# [id number] Ordering Dr: Junior Palma [place] [id number] INDICATION: cough EXAMINATION/TECHNIQUE: X-RAY - XR Chest 2 Views COMPARISON: March 01, 2013 FINDINGS: LINES/DEVICES: None. LUNGS: There is a right upper lobe infiltrate. No pneumothorax. MEDIASTINUM AND CARDIOVASCULAR STRUCTURES: Cardiac silhouette not enlarged. Central airways and mediastinal contour are unremarkable. BONES AND SOFT TISSUES: Unremarkable. RAD/Chest PA and Lateral IMPRESSION: Right upper lobe infiltrate. Electronically Signed: Manuel Marroquin DO at 17:12 EST Reading Location ID and State: [facility] / [place] Tel [phone], Service support , CC: Dr. Sasha Grant MD; NY[employer] Analysis Or Research Safety Inspector: Signed Normal [facility] Urgent [facility] Visit Reporton 1 06-27-2023 Urgent Care Visit Report [facility] [address], [address] [place] [id number] OFFICE VISIT Date of Service: 04/27/24 MR#: [id number] Acct: [id number] Name: FRANCIS FAJARDO Rep #: [id number] : 1990 Provider: NYA Abbott Age/Sex: 34/M Location: [facility] Status: Signed Intake Vital Signs 01/18/22 19:17 04/27/24 16:02 Height 5 ft 11 in 5 ft 11 in Weight: 194 lb BMI 27.0 BP 132/96 H Blood Pressure Location Lt brachial Position Sitting Respiration 16 Pulse 74 Pulse Source Monitor Temp 98.2 F Temp Source Oral Pulse Oximetry (%) 96 Oxygen Delivery Method room air Intake Visit Reasons: Cough Chief Complaint: COUGH CONCERNS FOR PNEUMONIA Lpc Required: No Accompanied by: Self Is patient in pain?: No Allergies acetaminophen (From Tylenol) Allergy (Verified 04/27/24 16:04) Rash cefaclor (From Ceclor) Allergy (Verified 04/27/24 16:04) Rash Medications ???Medication ???Instructions ???Recorded ???Confirmed ???Type benzonatate 200 mg capsule 200 mg PO TID PRN cough #20 caps 04/27/24 04/27/24 Rx levofloxacin 750 mg tablet 750 mg PO Q24H #7 tabs 04/27/24 04/27/24 Rx PFSH Medical History (Updated 04/27/24 @ 17:06 by Junior FAY, [place]) Right pulmonary infiltrate on CXR Social History household members: spouse Smoking Status: Never smoker substance use type: does not use HPI HPI Chief Complaint: COUGH CONCERNS FOR PNEUMONIA Details: FRANCIS FAJARDO, is a 34 M who presents to the office today for initial evaluation approximately 5-day history of persistent moist nonproductive cough, noting increased fatigue and decreased appetite and energy particularly over the last couple of days. No complaints of chest pressure or shortness of breath or dyspnea on exertion. No rwpc-peb-dlbdrkr products taken to assist. Non-smoker. PMH significant for history of PE in 2020 with full recovery then. Several close contacts with similar URI complaints. No other associated symptoms and no other alleviating/aggravatin g factors. cxr = RUL pneumn ? levoflox, benzon work excuse ROS Const Constitutional: No other (as above) Exam Const General: cooperative, healthy appearing and no acute distress Nutritional Appearance: average body habitus Orientation: alert and awake [facility] Head: normal to inspection Ears: hearing grossly normal bilaterally, external ears normal, TM's normal bilaterally and EAC's normal Nose: external nose normal, nares normal, septum normal and no nasal discharge Face and sinus: normal facial exam, sinuses nontender and face symmetric Mouth: oral mucosae normal, lip normal, tongue normal, oropharynx normal and moist mucous membranes Throat: posterior oropharynx normal, tonsils normal, uvula midline and no postnasal drainage Eyes General: appearance normal, both eyes and all related structures Neck Neck: normal visual inspection, full ROM, no lymphadenopathy, no meningeal signs and supple Neck mass: No Thyroid: thyroid normal Lymphatic: no lymphadenopathy noted Chest Chest palpation inspection: normal inspection of the chest Resp Effort Inspection: normal respiratory effort and able to speak in complete sentences Auscultation: Left: Clear to Auscultation and Right: Rhonchi Cardio Palpation: normal PMI Rate: regular rate Rhythm: regular rhythm Heart Sounds: S1 normal, S2 normal, no gallops, no murmurs and no rubs Pulses: radial pulses present GI Inspection: normal to inspection Skin General: no rashes or lesions noted Neuro General: patient alert, patient awake and patient oriented x3 Cognition: normal cognition Speech: speech normal Psych Appearance: grossly normal Mental Status: mental status grossly normal Mood: congruent mood Affect: normal affect Speech and Movement: speech and movement normal Attitude: cooperative Coding Level of Care Code Off vis,new,level 4 Diagnoses Right pulmonary infiltrate on CXR R91.8 Assessment and Plan Assessment and Plan (1) Right pulmonary infiltrate on CXR: Status: Acute Plan: PA and lateral chest x-ray taken today reveals right pulmonary infiltrate per my review, pending radiologist interpretation at the time patient discharge. Levofloxacin and benzonatate as prescribed today. Supportive measures as instructed today. Work excuse offered. Follow-up with PCP in 3 to 5 days should symptoms not improve, ED sooner should symptoms only worsen or any other concerns develop. Patient states acknowledging understanding all the above. This note was generated with [employer] dictation software. It may contain incorrect words, spelling, and punctuation that were not noted in checking the note before signing. Orders: Orders Chest PA and Later (more content not included)... Normal [facility] CBC panel Auto (Bld)on 01-02 Erythrocyte distribution width (RBC) [Ratio] 12.7 % Normal 11.5-15.0 [facility] Comment on above: Order Comment: Giana andino Type: BLOOD SPECIMEN Ordering Facility: [facility] Address: [address] [place], [place] [id number] Performed By: #### 2 132-9, 228-8 #### [facility] CLIA [id number] [address] [place] [address] [place] Hematocrit (Bld) [Volume fraction] 43.6 % Normal 39.0-51.0 [facility] Comment on above: Order Comment: Giana andino Type: BLOOD SPECIMEN Ordering Facility: [facility] Address: [address] [place], [place] [id number] Performed By: #### 2 132-9, 8 #### [facility] CLIA [id number] [address] [place] [address] [place] Hemoglobin (Bld) [Mass/Vol] 14.8 g/dL Normal 13.0-17.0 [facility] Comment on above: Order Comment: Speci men Type: BLOOD SPECIMEN Ordering Facility: [facility] Address: [address] [place], [place] [address] Performed By: #### 2 132-9, 8 #### [facility] CLIA [id number] [address] [place] [address] [place] MCH (RBC) [Entitic mass] 31.2 pg Normal 26.0-34.0 [facility] Comment on above: Order Comment: Speci men Type: BLOOD SPECIMEN Ordering Facility: [facility] Address: [address] [place], [place] [address] Performed By: #### 2 132-9, 8 #### [facility] CLIA [id number] [address] [place] [address] [place] MCHC (RBC) [Mass/Vol] 33.9 g/dL Normal 30.5-36.0 [facility] Comment on above: Order Comment: Speci men Type: BLOOD SPECIMEN Ordering Facility: [facility] Address: [address] Performed By: #### 2 132-9, 8 #### [facility] CLIA [id number] [address] [place] [address] [place] MCV (RBC) [Entitic vol] 91.8 fL Normal 80.0-100.0 [facility] Comment on above: Order Comment: Speci men Type: BLOOD SPECIMEN Ordering Facility: [facility] Address: [address] [place], [place] [address] Performed By: #### 2 132-9, 8 #### [facility] CLIA [id number] [address] [place] [address] [place] Nucleated RBC (Bld) [#/Vol] 10*3/uL Normal <0.01 [facility] Comment on above: Order Comment: Speci men Type: BLOOD SPECIMEN Ordering Facility: [facility] Address: [address] [place] [address] Performed By: #### 2 132-9, 2284-8 #### [facility] CLIA [id number] [address] [place] [address] [place] Platelet mean volume (Bld) [Entitic vol] 11.6 fL Normal 9.0-12.7 [facility] Comment on above: Order Comment: Speci men Type: BLOOD SPECIMEN Ordering Facility: [facility] Address: [address] [place] [address] Performed By: #### 2 132-9, 2283-8 #### [facility] CLIA [id number] [address] [place] [address] [place] Platelets (Bld) [#/Vol] 205 10*3/uL Normal 150-400 [facility] Comment on above: Order Comment: Speci men Type: BLOOD SPECIMEN Ordering Facility: [facility] Address: [address] [place], [place] [address] Performed By: #### 2 132-9, 228-8 #### [facility] CLIA [id number] [address] [place] [address] [place] RBC (Bld) [#/Vol] 4.75 10*6/uL Normal 4.20-6.00 [facility] Comment on above: Order Comment: Speci men Type: BLOOD SPECIMEN Ordering Facility: [facility] Address: [address] [place], [place] [address] Performed By: #### 2 132-9, 2284-8 #### [facility] CLIA [id number] [address] [place] [address] [place] WBC (Bld) [#/Vol] 7.33 10*3/uL Normal 3.70-11.00 [facility] Comment on above: Order Comment: Speci men Type: BLOOD SPECIMEN Ordering Facility: [facility] Address: [address] [place] [address] Performed By: #### 2 132-9, 228-8 #### [facility] CLIA [id number] [facility] [place] [address] [facility] Comprehensive metabolic 2000 panelon 01-02-2023 Albumin [Mass/Vol] 5.1 g/dL High 3.9-4.9 [facility] Comment on above: Order Comment: Speci men Type: BLOOD SPECIMEN Ordering Facility: [facility] Address: [address] [place], [place] [address] Performed By: #### 2 132-9, 2283-8 #### [facility] CLIA [id number] [address] [place] [address] [place] ALP [Catalytic activity/Vol] 102 U/L Normal 38-113 [facility] Comment on above: Order Comment: Speci men Type: BLOOD SPECIMEN Ordering Facility: [facility] Address: [address] [place], [place] [address] Performed By: #### 2 132-9, 2283-8 #### [facility] CLIA [id number] [facility] [place] [address] [place] ALT [Catalytic activity/Vol] 19 U/L Normal 10-54 [facility] Comment on above: Order Comment: Speci men Type: BLOOD SPECIMEN Ordering Facility: [facility] Address: [address] [place], [place] [address] Performed By: #### 2 132-9, 2283-8 #### [facility] CLIA [id number] [address] [place] [id number] [place] Anion gap [Moles/Vol] 12 mmol/L Normal 9-18 [facility] Comment on above: Order Comment: Speci men Type: BLOOD SPECIMEN Ordering Facility: [facility] Address: [address] Performed By: #### 2 132-9, 8 #### [facility] CLIA [id number] [address] [place] [address] [place] AST [Catalytic activity/Vol] 25 U/L Normal 14-40 [facility] Comment on above: Order Comment: Speci men Type: BLOOD SPECIMEN Ordering Facility: [facility] Address: [address] Performed By: #### 2 132-9, 8 #### [facility] CLIA [id number] [address] [place] [address] [place] Bilirubin [Mass/Vol] 0.5 mg/dL Normal 0.2-1.3 [facility] Comment on above: Order Comment: Speci men Type: BLOOD SPECIMEN Ordering Facility: [facility] Address: [address] Performed By: #### 2 132-9, 8 #### [facility] CLIA [id number] [address] [place] [address] [place] Calcium [Mass/Vol] 9.6 mg/dL Normal 8.5-10.2 [facility] Comment on above: Order Comment: Speci men Type: BLOOD SPECIMEN Ordering Facility: [facility] Address: [address] Performed By: #### 2 132-9, 8 #### [facility] CLIA [id number] [address] [place] [address] [place] Chloride [Moles/Vol] 103 mmol/L Normal 97-105 [facility] Comment on above: Order Comment: Speci men Type: BLOOD SPECIMEN Ordering Facility: [facility] Address: [address] Performed By: #### 2 132-9, 2283-8 #### [facility] CLIA [id number] [address] [place] [address] [place] CO2 [Moles/Vol] 27 mmol/L Normal 22-30 [facility] Comment on above: Order Comment: Speci men Type: BLOOD SPECIMEN Ordering Facility: [facility] Address: [address] [place] [address] Performed By: #### 2 132-9, 2284-01 #### [facility] CLIA [id number] [address] [place] [address] [place] Creatinine [Mass/Vol] 1.02 mg/dL Normal 0.73-1.22 [facility] Comment on above: Order Comment: Speci men Type: BLOOD SPECIMEN Ordering Facility: [facility] Address: [address] [place] [address] Performed By: #### 2 132-9, 2284-01 #### [facility] CLIA [id number] [address] [place] [address] [place] ESTIMATED GLOMERULAR FILTRATION RATE 100 mL/min/1.73m??? Normal >=60 [facility] Comment on above: Order Comment: Speci men Type: BLOOD SPECIMEN Ordering Facility: [facility] Address: [address] [place] [address] Result Comment: Aisha mated Glomerular Filtration Rate (eGFR) is calculated using the 2020 CKD-EPI creatinine equation. This equation utilizes serum creatinine, sex, and age as parameters. The creatinine assay has traceable calibration to isotope dilution-mass spectrometry. Refer to KDIGO guidelines for clinical interpretation. In patients with unstable renal function, e.g. those with acute kidney injury, the eGFR may not accurately reflect actual GFR. Performed By: #### 2 132-9, 2283-8 #### [facility] CLIA [id number] [address] [id number] [place] Glucose [Mass/Vol] 84 mg/dL Normal 74-99 [facility] Comment on above: Order Comment: Giana andino Type: BLOOD SPECIMEN Ordering Facility: [facility] Address: [address] [place] [address] Result Comment: The [place] Diabetes Association (ADA) provides guidance for cutoff values for fasting glucose and random glucose. The ADA defines fasting as no caloric intake for at least 8 hours. Fasting plasma glucose results between 100 to 125 mg/dL indicate increased risk for diabetes (prediabetes). Fasting plasma glucose results greater than or equal to 126 mg/dL meet the criteria for diagnosis of diabetes. In the absence of unequivocal hyperglycemia, results should be confirmed by repeat testing. In a patient with classic symptoms of hyperglycemia or hyperglycemic crisis, random plasma glucose results greater than or equal to 200 mg/dL meet the criteria for diagnosis of diabetes. Reference: Standards of Medical Care in Diabetes 2016, [place] Diabetes Association. Diabetes Care. 2016.39(Suppl 1). Performed By: #### 2 132-9, 2283-8 #### [facility] CLIA [id number] [address] [place] [address] [place] Potassium [Moles/Vol] 4.3 mmol/L Normal 3.7-5.1 [facility] Comment on above: Order Comment: Giana andino Type: BLOOD SPECIMEN Ordering Facility: [facility] Address: [address] Performed By: #### 2 132-9, 8 #### [facility] CLIA [id number] [address] [place] [address] [place] Protein [Mass/Vol] 6.8 g/dL Normal 6.3-8.0 [facility] Comment on above: Order Comment: Giana andino Type: BLOOD SPECIMEN Ordering Facility: [facility] Address: [address] [place] [address] Performed By: #### 2 132-9, 8 #### [facility] CLIA [id number] [address] [place] [address] [place] Sodium [Moles/Vol] 142 mmol/L Normal 136-144 [facility] Comment on above: Order Comment: Speci men Type: BLOOD SPECIMEN Ordering Facility: [facility] Address: [address] Performed By: #### 2 132-9, 2283-8 #### [facility] CLIA [id number] [address] [place] [address] [place] Urea nitrogen [Mass/Vol] 17 mg/dL Normal 9-24 [facility] Comment on above: Order Comment: Speci men Type: BLOOD SPECIMEN Ordering Facility: [facility] Address: [address] Performed By: #### 2 132-9, 2283-8 #### [facility] CLIA [id number] [address] [place] [address] [place] Folate SerPl-mCncon 01-03-20 23 Folate [Mass/Vol] 14.6 ng/mL Normal >4.7 [facility] Comment on above: Order Comment: Speci men Type: BLOOD SPECIMEN Ordering Facility: [facility] Address: [address] [place] [address] Performed By: #### 2 132-9, 8 #### [facility] CLIA [id number] [address] [place] [address] [place] HCV RNA SerPl JOHNATHON+probe-aCnc on 01-02-2023 HCV RNA JOHNATHON+probe Qn Not detected Normal HCV RNA not detected by PCR. [facility] Comment on above: Order Comment: Speci men Type: BLOOD SPECIMEN Ordering Facility: [facility] Address: [address] [id number] Performed By: #### 2 132-9, 8 #### [facility] CLIA [id number] [address] [place] [address] [place] TSH SerPl-aCncon 01-02-2023 TSH Qn 1.260 m[IU]/L Normal 0.270-4.200 [facility] Comment on above: Order Comment: Speci men Type: BLOOD SPECIMEN Ordering Facility: [facility] Address: [address] [place] [address] Performed By: #### 2 1329, 2284-01 #### [facility] CLIA [id number] [address] [facility] [place] [address] [place] Testost SerPl-mCncon 023 Testosterone [Mass/Vol] 919 ng/dL High 193-824 [facility] Comment on above: Order Comment: Speci men Type: BLOOD SPECIMEN Ordering Facility: [facility] Address: [address] [place] [address] Result Comment: A te stosterone level in the 193-320 ng/dL range with associated clinical symptoms is considered low and may indicate hypogonadism (from [facility] 2010 363:123-135). Results >320 ng/dL are considered normal. Performed By: #### 2 , 2284-01 #### [facility] CLIA [id number] [address] [facility] [place] [address] [place] Trigl SerPl-mCncon 3 Triglyceride [Mass/Vol] 47 mg/dL Normal <150 [facility] Comment on above: Order Comment: Speci men Type: BLOOD SPECIMEN Ordering Facility: [facility] Address: [address] [place] [address] Result Comment: <150 mg/dL, Normal 150-199 mg/dL, Borderline high 200-499 mg/dL, High >499 mg/dL, Very high Reference: 1. National Cholesterol Education Program ATP III Guideline At-A-Glance Quick Desk Reference: National Heart, Lung, and Blood [place]. National Institutes of Health. 2001: NIH Publication No. 01-3305. Performed By: #### 2 9, 2284-01 #### [facility] CLIA [id number] [address] [facility] [place] [address] [place] Triglyceride [Mass/Vol]on FASTING TIME 4 hrs Normal [facility] Comment on above: Order Comment: Speci men Type: BLOOD SPECIMEN Ordering Facility: [facility] Address: [place] [address] Performed By: #### 2 132-9, 8 #### [facility] CLIA [id number] [address] [facility] Cobalamin (Vitamin B12) [Mass/Vol] pg/mL High 232-1245 [facility] Comment on above: Order Comment: Speci men Type: BLOOD SPECIMEN Ordering Facility: [facility] Address: [place] [address] Performed By: #### 2 132-9, 228-8 #### [facility] CLIA [id number] [address] CNOVon 12-31-2022 CNOV Office Visit (INTMWS ) FRANCIS FAJARDO ([id number]) 1990 M Date Time Provider Department 12/31/22 7:00 PM MERRILL VELASQUEZ INTMWS During your visit today, we recorded the following information about you: Pulse Respiration Blood pressure Weight 64/minute 18/minute 116/70 86.6 kg Merrill Velasquez MD 12/31/2022 7:52 PM Signed This note was created using sickweatherriter. Subjective Francis Fajardo is a 32 year old male. He has noted bothersome fatigue for the past 3 months. This was lack of drive and energy. There was some loss of libido. 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 He continued to work out 5 days per week, running and weight lifting. Sleep was good. He did not feel sad. No new stressors were noted. ASTHMA CONTROL TEST Date: 12/31/2022 In the last 4 weeks, how much of the time did your asthma keep you from getting as much done at work or home that you wanted to do? None of the time (5) In the last 4 weeks, how often have you had shortness of breath? Not at all (5) In the last 4 weeks, how often did your asthma symptoms (wheezing, coughing, shortness of breath, chest tightness or pain) wake you up at night or earlier than usual? Not at all (5) In the last 4 weeks, how often have you used your rescue inhaler or nebulizer medication (such as Albuterol, Proventil, Ventolin, Maxair, Xoponex, or Primatene Mist)? Not at all (5) In the last 4 weeks, how would you rate your asthma control? Well controlled (4) Total: more than 20 1) Snoring? Yes. 2) Tired? No. 3) Observed apnea? No. 4) Pressure (Hypertension)? No. 5) BMI>45? No. 6) Age>50? No. 7) Neck circumference >40cm? No. 8) Gender male? Yes. Conclude: Total 3 or more positive responses? No. Depression Screening 10/12/2020 08/12/2022 12/31/2022 PHQ-2 Score 0 0 0 PHQ-9 Score - 1 - Depression screening tool completed and reviewed. Based on score and interview, patient is not at risk for depression. Screening tool discussed with patient, and I recommended no further intervention at this time. Review of Systems Constitutional: Negative for fever. HENT: Negative. Respiratory: Negative for cough, shortness of breath and wheezing. Cardiovascular: Negative. Gastrointestinal: Negative for blood in stool, diarrhea, nausea and vomiting. Genitourinary: Negative for difficulty urinating and dysuria. Musculoskeletal: Negative. Neurological: Negative. Psychiatric/Behavioral : Negative for dysphoric mood and sleep disturbance. The patient is not nervous/anxious. ACTIVE PROBLEM LIST Mild Intermittent Asthma in Adult Without Complication History of treated hepatitis C. Social History Tobacco Use Smoking status: Former Packs/day: 0.50 Years: 1.00 Total pack years: 0.50 Types: Cigarettes Quit date: 09/14/2014 Years since quittin.3 Smokeless tobacco: Current Types: Chew Substance Use Topics Alcohol use: Yes Comment: 2 beers monthly Drug use: Not Currently Types: Crack Cocaine, IV Comment: none since 20s. Current Outpatient Medications Medication Sig multivitamin with minerals (MEN'S ONE DAILY) tablet Take 1 tablet by mouth once daily. omega-3 fatty acids/fish oil (FISH OIL OMEGA 3-6-9 ORAL) Take by mouth. cyanocobalamin, vitamin B-12, (VITAMIN B-12 ORAL) Take by mouth. albuterol HFA (PROVENTIL HFA, VENTOLIN HFA) 90 mcg/actuation inhaler Inhale 2 Puffs as instructed every 4 hours as needed. mometasone-formoterol (DULERA) 100-5 mcg/actuation inhaler Inhale 2 Puffs as instructed twice daily. multivitamin tablet Take 1 tablet by mouth once daily. No current facility-administered medications for this visit. Objective BP 116/70 (BP Site: Left Arm, BP Position: Sitting, BP Cuff Size: Large Adult) Pulse 64 Resp 18 Wt 86.6 kg (191 lb) BMI 27.41 kg/m? Physical Exam Constitutional: General: He is not in acute distress. Appearance: He is not ill-appearing. HENT: Head: Normocephalic. Eyes: Conjunctiva/sclera: Conjunctivae normal. Cardiovascular: Rate and Rhythm: Normal rate and regular rhythm. Heart sounds: No murmur heard. No gallop. Pulmonary: Effort: Pulmonary effort is normal. Breath sounds: Normal breath sounds. Abdominal: Palpations: Abdomen is soft. There is no mass. Tenderness: There is no abdominal tenderness. Hernia: No hernia is present. There is no hernia in the left inguinal area or right inguinal area. Genitourinary: Penis: Normal and circumcised. Testes: Normal. Epididymis: Right: Normal. Musculoskeletal: Cervical back: No tenderness. Lymphadenopathy: Cervical: No cervical adenopathy. Lower Body: No right inguinal adenopathy. No left inguinal adenopathy. Neurological: Mental Status: He is alert. Assessment and Plan 1. Fatigue, unspecified type - ICD9: 780.79, ICD10: R53.83 (primary diagnosis) Etiology not clear. - DEPRESSI (more content not included)... Normal [facility] CBC panel Auto (Bld)on 08-14 Erythrocyte distribution width (RBC) [Ratio] 13.4 % Normal 11.5-15.0 [facility] Comment on above: Order Comment: Speci men Type: BLOOD SPECIMEN Ordering Facility: [facility] Address: [address] [place] [address] Performed By: #### 2 132-9, 2283-8 #### [facility] CLIA [id number] [address] [place] [address] [place] Hematocrit (Bld) [Volume fraction] 42.3 % Normal 39.0-51.0 [facility] Comment on above: Order Comment: Speci men Type: BLOOD SPECIMEN Ordering Facility: [facility] Address: [address] [place] [address] Performed By: #### 2 132-9, 8 #### [facility] CLIA [id number] [address] [place] [address] [place] Hemoglobin (Bld) [Mass/Vol] 13.9 g/dL Normal 13.0-17.0 [facility] Comment on above: Order Comment: Speci men Type: BLOOD SPECIMEN Ordering Facility: [facility] Address: [address] [place], [place] [address] Performed By: #### 2 132-9, 8 #### [facility] CLIA [id number] [address] [place] [address] [place] MCH (RBC) [Entitic mass] 30.8 pg Normal 26.0-34.0 [facility] Comment on above: Order Comment: Speci men Type: BLOOD SPECIMEN Ordering Facility: [facility] Address: [address] [place], [place] [address] Performed By: #### 2 132-9, 2283-8 #### [facility] CLIA [id number] [address] [place] [address] [place] MCHC (RBC) [Mass/Vol] 32.9 g/dL Normal 30.5-36.0 [facility] Comment on above: Order Comment: Speci men Type: BLOOD SPECIMEN Ordering Facility: [facility] Address: [address] [place] [address] Performed By: #### 2 132-9, 8 #### [facility] CLIA [id number] [address] [place] [address] [place] MCV (RBC) [Entitic vol] 93.6 fL Normal 80.0-100.0 [facility] Comment on above: Order Comment: Speci men Type: BLOOD SPECIMEN Ordering Facility: [facility] Address: [address] Performed By: #### 2 132-9, 8 #### [facility] CLIA [id number] [address] [place] [address] [place] Nucleated RBC (Bld) [#/Vol] 10*3/uL Normal <0.01 [facility] Comment on above: Order Comment: Speci men Type: BLOOD SPECIMEN Ordering Facility: [facility] Address: [address] Performed By: #### 2 132-9, 8 #### [facility] CLIA [id number] [address] [place] [address] [place] Platelet mean volume (Bld) [Entitic vol] 11.2 fL Normal 9.0-12.7 [facility] Comment on above: Order Comment: Speci men Type: BLOOD SPECIMEN Ordering Facility: [facility] Address: [address] [place] [address] Performed By: #### 2 132-9, 8 #### [facility] CLIA [id number] [address] [id number] [place] Platelets (Bld) [#/Vol] 219 10*3/uL Normal 150-400 [facility] Comment on above: Order Comment: Speci men Type: BLOOD SPECIMEN Ordering Facility: [facility] Address: [address] [place], [place] [address] Performed By: #### 2 132-9, 228-8 #### [facility] CLIA [id number] [address] [place] [address] [place] RBC (Bld) [#/Vol] 4.52 10*6/uL Normal 4.20-6.00 [facility] Comment on above: Order Comment: Speci men Type: BLOOD SPECIMEN Ordering Facility: [facility] Address: [address] [place], [place] [address] Performed By: #### 2 132-9, 2283-8 #### [facility] CLIA [id number] [address] [place] [address] [place] WBC (Bld) [#/Vol] 7.03 10*3/uL Normal 3.70-11.00 [facility] Comment on above: Order Comment: Speci men Type: BLOOD SPECIMEN Ordering Facility: [facility] Address: [address] [place], [place] [address] Performed By: #### 2 132-9, 2283-8 #### [facility] CLIA [id number] [address] [place] [address] [place] D dimer FEU PPP-mCncon 08-14 Fibrin D-dimer FEU (PPP) [Mass/Vol] 250 ng/mL FEU Normal <500 [facility] Comment on above: Order Comment: Speci men Type: BLOOD SPECIMEN Ordering Facility: [facility] Address: [address] [place], [place] [address] Performed By: #### 2 132-9, 2283-8 #### [facility] CLIA [id number] [address] [place] [address] [place] XR Chest PA and Lateralon IMPRESSION: No acute radiographic abnormality. Analysis Or Research Safety Inspector: SENTHIL Transcribe Date/Time: Aug 14 2022 2:58P Dictated by : HILL AMADO MD This examination was interpreted and the report reviewed and electronically signed by: HILL AMADO MD on Aug 14 2022 2:58PM EST DIVISION OF RADIOLOGY * * *Final Report* * * DATE OF EXAM: Aug 13 2022 7:35PM WOX [id number] - XR CHEST 2V FRONTAL/LAT / PROCEDURE REASON: multiple diagnoses * * * * Physician Interpretation * * * * EXAMINATION: CHEST RADIOGRAPH (2 VIEW FRONTAL & LATERAL) CLINICAL HISTORY: Dyspnea, unspecified type History of pulmonary embolism MQ: XC2_6 EXAM DATE/TIME: 08/13/2022 7:35 PM COMPARISON: Chest x-ray on 06/02/2018 RESULT: Lines, tubes, and devices: None. Lungs and pleura: No consolidation. No lung mass. No pleural effusion. No pneumothorax. Cardiomediastinal silhouette: Normal cardiomediastinal silhouette. Bones and soft tissues: Unremarkable. DIVISION OF RADIOLOGY Provider, [facility] - 08/14/2022 * * *Final Report* * * DATE OF EXAM: Aug 13 2022 7:35PM WOX [id number] - XR CHEST 2V FRONTAL/LAT / PROCEDURE REASON: multiple diagnoses * * * * Physician Interpretation * * * * EXAMINATION: CHEST RADIOGRAPH (2 VIEW FRONTAL & LATERAL) CLINICAL HISTORY: Dyspnea, unspecified type History of pulmonary embolism MQ: XC2_6 EXAM DATE/TIME: 08/13/2022 7:35 PM COMPARISON: Chest x-ray on 06/02/2018 RESULT: Lines, tubes, and devices: None. Lungs and pleura: No consolidation. No lung mass. No pleural effusion. No pneumothorax. Cardiomediastinal silhouette: Normal cardiomediastinal silhouette. Bones and soft tissues: Unremarkable. IMPRESSION IMPRESSION: No acute radiographic abnormality. Analysis Or Research Safety Inspector: PSCB Transcribe Date/Time: Aug 14 2022 2:58P Dictated by : HILL AMADO MD This examination was interpreted and the report reviewed and electronically signed by: HILL AMADO MD on Aug 14 2022 2:58PM EST [facility] XR Chest PA and LateralOrder ed By: [facility] Provider on 08-14-2022 [facility] CNOVon 08-13-2022 CNOV Office Visit (INTMWS ) FRANCIS FAJARDO ([id number]) 1990 M Date Time Provider Department 08/13/22 6:40 PM MERRILL VELASQUEZ INTMWS During your visit today, we recorded the following information about you: Temperature Pulse Blood pressure Weight 97.3 degrees 68/minute 118/70 87.1 kg Merrill Velasqeuz MD 08/14/2022 7:17 AM Signed This note was created using [employer]. Subjective Francis Fajardo is a 32 year old male with his spouse. He started experiencing dyspnea qualified as inability to take a deep breath 5 days ago. There was no specific trigger or respiratory illness, and his asthma had been controlled. There was no decrease in his work or exercise capacity. 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 I saw him once a year ago and referred him to pulmonary, which he did not pursue. Review of Systems Constitutional: Negative for chills, fatigue and fever. HENT: Negative. Respiratory: Negative for cough and wheezing. Cardiovascular: Negative for chest pain, palpitations and leg swelling. Gastrointestinal: Negative. Psychiatric/Behavioral : Negative for behavioral problems and dysphoric mood. The patient is not nervous/anxious. ACTIVE PROBLEM LIST Mild Intermittent Asthma in Adult Without Complication History of treated hepatitis C. Current Outpatient Medications Medication Sig multivitamin with minerals (MEN'S ONE DAILY) tablet Take 1 tablet by mouth once daily. omega-3 fatty acids/fish oil (FISH OIL OMEGA 3-6-9 ORAL) Take by mouth. cyanocobalamin, vitamin B-12, (VITAMIN B-12 ORAL) Take by mouth. albuterol HFA (PROVENTIL HFA, VENTOLIN HFA) 90 mcg/actuation inhaler Inhale 2 Puffs as instructed every 4 hours as needed. mometasone-formoterol (DULERA) 100-5 mcg/actuation inhaler Inhale 2 Puffs as instructed twice daily. multivitamin tablet Take 1 tablet by mouth once daily. No current facility-administered medications for this visit. Social History Tobacco Use Smoking status: Former Packs/day: 0.50 Years: 1.00 Pack years: 0.50 Types: Cigarettes Quit date: 09/14/2014 Years since quittin.9 Smokeless tobacco: Current Types: Chew Substance Use Topics Alcohol use: Yes Comment: 2 beers monthly Drug use: Not Currently Types: Crack Cocaine, IV Comment: none since 20s. Objective BP 118/70 (BP Site: Left Arm, BP Position: Sitting, BP Cuff Size: Large Adult) Pulse 68 Temp 36.3 ?C (97.3 ?F) (Temporal) Wt 87.1 kg (192 lb) SpO2 98% BMI 27.55 kg/m? Physical Exam Constitutional: Appearance: Normal appearance. HENT: Nose: Nose normal. Mouth/Throat: Pharynx: Oropharynx is clear. Eyes: General: No scleral icterus. Cardiovascular: Rate and Rhythm: Normal rate and regular rhythm. Pulmonary: Effort: Pulmonary effort is normal. No respiratory distress. Breath sounds: Normal breath sounds. No wheezing or rales. Musculoskeletal: Right lower leg: No edema. Left lower leg: No edema. Lymphadenopathy: Cervical: No cervical adenopathy. Neurological: Mental Status: He is alert. Assessment and Plan 1. Dyspnea, unspecified type - ICD9: 786.09, ICD10: R06.00 (primary diagnosis) - XR CHEST 2V FRONTAL/LAT - CBC - D-DIMER - Other recommendations will depend on test results. 2. History of pulmonary embolism - ICD9: V12.55, ICD10: Z86.711 - XR CHEST 2V FRONTAL/LAT - CBC - D-DIMER 3. Mild intermittent asthma in adult without complication - ICD9: 493.90, ICD10: J45.20 Mild intermittent Asthma stable - Continue current meds - Avoidance of triggers recommended 4. History of treated hepatitis C. - ICD9: V12.09, ICD10: Z86.19 S/p Epclusa. MD Merrill Main MD 08/13/2022 7:24 PM Signed Consider pneumonia vaccine due to asthma. Allergies As of Date: 08/13/2022 Noted Allergy Reaction ACETAMINOPHEN 07/15/2020 2 - Rash CECLOR (CEFACLOR) 08/17/2005 2 - Rash Date Reviewed: 08/13/2022 Reviewed by: Migdalia Smyth LPN - Fully Assessed Reason for Visit: Breathing Problem [17] Primary Visit Diagnosis:Dyspnea, unspecified type [R06.00] Other Visit Diagnoses:History of pulmonary embolism [Z86.711] Mild intermittent asthma in adult without complication [J45.20] History of treated hepatitis C. [Z86.19] Order(s):XR CHEST 2V FRONTAL/LAT [[id number]] Order #: [id number] FUTURE CBC [SQCBC] Order #: [id number] FUTURE D-DIMER [SQDDMER] Order #: [id number] FUTURE Prescriptions as of 08/14/2022 - multivitamin with minerals (MEN'S ONE DAILY) tablet Take 1 tablet by mouth once daily. - omega-3 fatty acids/fish oil (FISH OIL OMEGA 3-6-9 ORAL) Take by mouth. - cyanocobalamin, vitamin B-12, (VITAMIN B-12 ORAL) Take by mouth. - albuterol HFA (PROVENTIL HFA, VENTOLIN HFA) 90 mcg/actuation inhaler Inhale 2 Puffs as instructed every 4 hours as needed. (more content not included)... Normal [facility] XR CHEST 2V FRONTAL/LATon XR CHEST 2V FRONTAL/LAT * * *Final Report* * * DATE OF EXAM: Aug 13 2022 7:35PM WOX [id number] - XR CHEST 2V FRONTAL/LAT / PROCEDURE REASON: multiple diagnoses * * * * Physician Interpretation * * * * EXAMINATION: CHEST RADIOGRAPH (2 VIEW FRONTAL and LATERAL) CLINICAL HISTORY: Dyspnea, unspecified type History of pulmonary embolism MQ: XC2_6 EXAM DATE/TIME: 08/13/2022 7:35 PM COMPARISON: Chest x-ray on 06/02/2018 RESULT: Lines, tubes, and devices: None. Lungs and pleura: No consolidation. No lung mass. No pleural effusion. No pneumothorax. Cardiomediastinal silhouette: Normal cardiomediastinal silhouette. Bones and soft tissues: Unremarkable. IMPRESSION: No acute radiographic abnormality. Analysis Or Research Safety Inspector: SENTHIL Transcribe Date/Time: Aug 14 2022 2:58P Dictated by : HILL AMADO MD This examination was interpreted and the report reviewed and electronically signed by: HILL AMADO MD on Aug 14 2022 2:58PM EST [id number] Normal [facility] XR Chest PA and Lateralon Radiology Study observation (narrative) [facility] HCV RNA SerPl JOHNATHON+probe-aCnc on 08-06-2022 HCV RNA JOHNATHON+probe Qn Not detected Normal HCV RNA not detected by PCR. [facility] Comment on above: Order Comment: Giana andino Type: BLOOD SPECIMEN Ordering Facility: [facility] Address: [address] [place] [address] Performed By: #### 2 132-9, 2284-8 #### [facility] CLIA [id number] [address] [place] [address] [place] Hepatic function 2000 panelo n 08-06-2022 Albumin [Mass/Vol] 4.5 g/dL Normal 3.9-4.9 [facility] Comment on above: Order Comment: Tyi men Type: BLOOD SPECIMEN Ordering Facility: [facility] Address: [address] [place] [address] Performed By: #### 2 4325-3 #### [facility] CLIA [id number] [address] [place] [address] [place] ALP [Catalytic activity/Vol] 82 U/L Normal 38-113 [facility] Comment on above: Order Comment: Speci men Type: BLOOD SPECIMEN Ordering Facility: [facility] Address: [address] Performed By: #### 2 4325-3 #### [facility] CLIA [id number] [address] [place] [address] [place] ALT [Catalytic activity/Vol] 20 U/L Normal 10-54 [facility] Comment on above: Order Comment: Tyi men Type: BLOOD SPECIMEN Ordering Facility: [facility] Address: [address] [place] [address] Performed By: #### 2 4325-3 #### [facility] CLIA [id number] [address] [place] [address] [place] AST [Catalytic activity/Vol] 34 U/L Normal 14-40 [facility] Comment on above: Order Comment: Speci men Type: BLOOD SPECIMEN Ordering Facility: [facility] Address: [address] [place], [place] [address] Performed By: #### 2 4325-3 #### [facility] CLIA [id number] [address] [place] [address] [place] Bilirubin [Mass/Vol] 0.3 mg/dL Normal 0.2-1.3 [facility] Comment on above: Order Comment: Speci men Type: BLOOD SPECIMEN Ordering Facility: [facility] Address: [address] [place], [place] [address] Performed By: #### 2 4325-3 #### [facility] CLIA [id number] [address] [place] [address] [place] Bilirubin.conjugated [Mass/Vol] mg/dL Normal <0.2 [facility] Comment on above: Order Comment: Speci men Type: BLOOD SPECIMEN Ordering Facility: [facility] Address: [address] [place], [place] [address] Performed By: #### 2 4325-3 #### [facility] CLIA [id number] [facility] [place] [address] [place] Protein [Mass/Vol] 6.7 g/dL Normal 6.3-8.0 [facility] Comment on above: Order Comment: Speci men Type: BLOOD SPECIMEN Ordering Facility: [facility] Address: [address] [place], [place] [address] Performed By: #### 2 4325-3 #### [facility] CLIA [id number] [facility] [place] [address] [place] CNPNon 11-16-2022 CNPN Telephone (GSTNOR) FRANCIS FAJARDO ([id number]) 1990 M Date Time Provider Department 05/09/22 MONICA GALO GSTNOR During your visit today, we recorded the following information about you: Monica Galo PA-C 05/09/2022 2:16 PM Signed ----- Message from Giuliana Garza sent at 05/09/2022 1:43 PM EST ----- Please place a new order for HEPATIC FUNCTION PANEL, if clinically indicated. This notification serves to inform you that a test(s) have been canceled for reason(s) denoted on the result report within the Epic chart. Thank you. If any questions, please contact Laboratory Client Services. DO NOT REPLY TO THIS MESSAGE. Monica Galo PA-C 05/09/2022 2:17 PM Signed New HFP order placed. Not sure if patient needs to go back to the lab to get this drawn. Halima Maharaj Ma 05/21/2022 3:04 PM Signed Left a P2P-Next message for patient. Halima Maharaj FRUIT COORDINATOR Allergies As of Date: 05/09/2022 Noted Allergy Reaction ACETAMINOPHEN 07/15/2020 2 - Rash CECLOR (CEFACLOR) 08/17/2005 2 - Rash Date Reviewed: 03/19/2022 Reviewed by: Vaughn Marcelo APRN.PIN PUSHER - Fully Assessed Reason for Visit: Orders [681] Primary Visit Diagnosis:Chronic hepatitis C without hepatic coma (HCC) [B18.2] Order(s):HEPATIC FUNCTION PNL [SQHFP] Order #: [id number] FUTURE Prescriptions as of 05/21/2022 - erythromycin (ROMYCIN) 5 mg/gram (0.5 %) ophthalmic ointment Use 1 application in the right eye three times daily. - sofosbuvir-velpatasvir (EPCLUSA) 400-100 mg Take one tablet by mouth, once daily same time of day - albuterol HFA (PROVENTIL HFA, VENTOLIN HFA) 90 mcg/actuation inhaler Inhale 2 Puffs as instructed every 4 hours as needed. - mometasone-formoterol (DULERA) 100-5 mcg/actuation inhaler Inhale 2 Puffs as instructed twice daily. - multivitamin tablet Take 1 tablet by mouth once daily. Problem List As Of Date 05/09/2022 Noted Resolved Injury, other and unspecified, knee, leg, ankle*10/26/2005 06/29/2021 Mild intermittent asthma in adult without compl*10/20/2019 Viral hepatitis C carrier (HCC) [B18.2] 10/20/2019 Encounter Status:Closed by MONICA GALO on 05/09/22 Normal [facility] HCV RNA SerPl JOHNATHON+probe-aCnc on 05-08-2022 HCV RNA JOHNATHON+probe Qn Not detected Normal HCV RNA not detected by PCR. [facility] Comment on above: Order Comment: Speci men Type: BLOOD SPECIMEN Ordering Facility: [facility] Address: [address] [place] [address] Performed By: #### 2 132-9, 2284-8 #### [facility] CLIA [id number] [address] [place] [address] [place] [facility] CNOVon 03-19-2022 CNOV Office Visit (UCWSTR ) FRANCIS FAJARDO ([id number]) 1990 M Date Time Provider Department 03/19/22 6:00 PM VAUGHN MARCELO During your visit today, we recorded the following information about you: Temperature Pulse Respiration Blood pressure 97.8 degrees 77/minute 18/minute 130/88 Weight 87.7 kg Vaughn Marcelo APRN.PIN PUSHER 03/19/2022 6:49 PM Signed Subjective HPI HPI Francis Fajardo is a 32 year old male who presents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 By: #### H EMDF, ESR, LACT3, CRP2, TROPN, CMP3 #### [facility] [address] [place] [address] Eosinophils/100 WBC (Bld) 0.0 % Low 1.0-6.0 [facility] Comment on above: Performed By: #### H EMDF, ESR, LACT3, CRP2, TROPN, CMP3 #### [facility] [address] [place] [address] Erythrocyte distribution width Ratio (RBC) 13.4 % Normal 11.5-14.5 [facility] Comment on above: Performed By: #### H EMDF, ESR, LACT3, CRP2, TROPN, CMP3 #### [facility] [address] [place] [address] Granulocytes/100 WBC (Bld) 88.9 % High 40.0-80.0 [facility] Comment on above: Performed By: #### H EMDF, ESR, LACT3, CRP2, TROPN, CMP3 #### [facility] [address] [place] [address] Hematocrit Volume Fraction (Bld) 42.2 % Normal 40.0-52.0 [facility] Comment on above: Performed By: #### H EMDF, ESR, LACT3, CRP2, TROPN, CMP3 #### [facility] [address] [place] [address] Hemoglobin mass conc (Bld) 14.5 g/dL Normal 13.0-18.0 [facility] Comment on above: Performed By: #### H EMDF, ESR, LACT3, CRP2, TROPN, CMP3 #### [place] [address] [place] [address] Lymphocytes #/vol (Bld) 0.3 10*3/uL Low 1.0-4.3 [facility] Comment on above: Performed By: #### H EMDF, ESR, LACT3, CRP2, TROPN, CMP3 #### [facility] [address] [place] [address] Lymphocytes/100 WBC (Bld) 5.9 % Low 20.0-40.0 [facility] Comment on above: Performed By: #### H EMDF, ESR, LACT3, CRP2, TROPN, CMP3 #### [facility] [address] [place] [address] MCH Entitic mass (RBC) 30.6 pg Normal 26.0-34.0 [facility] Comment on above: Performed By: #### H EMDF, ESR, LACT3, CRP2, TROPN, CMP3 #### [facility] [address] [place] [address] MCHC mass conc (RBC) 34.5 % Normal 32.0-36.0 [facility] Comment on above: Performed By: #### H EMDF, ESR, LACT3, CRP2, TROPN, CMP3 #### [place] [address] [place] [address] MCV Entitic volume (RBC) 88.7 fL Normal 80.0-98.0 [facility] Comment on above: Performed By: #### H EMDF, ESR, LACT3, CRP2, TROPN, CMP3 #### [facility] [address] [place] [address] Monocytes #/vol (Bld) 0.2 10*3/uL Normal 0.0-0.8 [facility] Comment on above: Performed By: #### H EMDF, ESR, LACT3, CRP2, TROPN, CMP3 #### [facility] [address] [place] [address] Monocytes/100 WBC (Bld) 4.2 % Normal 2.0-10.0 [facility] Comment on above: Performed By: #### H EMDF, ESR, LACT3, CRP2, TROPN, CMP3 #### [facility] [address] [place] [address] Platelet mean volume Entitic volume (Bld) 9.3 fL Normal 7.4-10.4 [facility] Comment on above: Performed By: #### H EMDF, ESR, LACT3, CRP2, TROPN, CMP3 #### [facility] [address] [place] [address] Platelets #/vol (Bld) 152 10*3/uL Normal 140-440 [facility] Comment on above: Performed By: #### H EMDF, ESR, LACT3, CRP2, TROPN, CMP3 #### [facility] [address] [place] [address] RBC #/vol (Bld) 4.75 10*6/uL Normal 4.40-5.90 [facility] Comment on above: Performed By: #### H EMDF, ESR, LACT3, CRP2, TROPN, CMP3 #### [facility] [address] [place] [address] WBC #/vol (Bld) 5.2 10*3/uL Normal 3.6-10.7 [facility] Comment on above: Performed By: #### H EMDF, ESR, LACT3, CRP2, TROPN, CMP3 #### [facility] [address] [place] [address] Lactic Acidon 09-05-2018 Lactate molar conc 0.8 mmol/L Normal 0.7-2.0 [facility] Comment on above: Performed By: #### H EMDF, ESR, LACT3, CRP2, TROPN, CMP3 #### [facility] [address] [place] [address] Rapid Flu A AND B, RNAon Rapid Influenza A Not Detected Normal Not Detected [facility] Comment on above: Performed By: #### R PFAB, UAMAC, UAMIC #### [facility] [address] [place] [address] Rapid Influenza B Not Detected Normal Not Detected [facility] Comment on above: Performed By: #### R PFAB, UAMAC, UAMIC #### [facility] [address] [place] [address] Sed Rateon 09-05-2018 Sed Rate 7 mm/h Normal 0-10 [facility] Comment on above: Performed By: #### H EMDF, ESR, LACT3, CRP2, TROPN, CMP3 #### [facility] [address] [place] [address] Troponin Ion 09-05-2018 Troponin I.cardiac mass conc ng/mL Normal 0.000-0.034 [facility] Comment on above: Result Comment: 0.04 6 - 0.400 = Indeterminate > 0.400 = Consider Myocardial Injury Performed By: #### H EMDF, ESR, LACT3, CRP2, TROPN, CMP3 #### [facility] [address] [place] [address] MRI HUMERUS W/O CON RTon MRI HUMERUS W/O CON RT MRI HUMERUS W/O CON RTOrdering Physician: Pierre Jones, DO04/22/2018 9:28 AMMRI RIGHT HUMERUS WITHOUT CONTRAST:Clinical Statement: Laceration of the right biceps.Comparison: None.TECHNIQUE: Axial proton density fat-sat, sagittal proton densityfat-sat, and sagittal T2 fat sat sequences were obtained through [facility] shoulder appear axial proton density, axial T1, axial T2 fatsat, and sagittal proton density fat-sat sequences were obtainedthrough the mid and distal humerus.FINDINGS: There is interstitial edema within the distal biceps muscleat the musculotendinous junction. On the sagittal view, there is aapparent perforation through the musculotendinous junction. Theperforation does not involve all the fibers of the tendon. Intactfibers are seen distally. There is thickening of the proximal bicepstendon. There may be a short segment longitudinal split tear at theantecubital fossa. Distally the biceps tendon is normal. The insertionis normal.At the musculotendinous junction, there is a focal fluid collectionwithin the biceps muscle that measures 0.4 cm x 1.6 cm, this may be achronic hematoma or seroma. The muscle fibers are otherwise withinnormal limits.At the shoulder, the supraspinatus tendon, infraspinatus tendon,subscapularis tendon and biceps tendon are within normal limits. Thereis no joint effusion. Proximally, the biceps tendon is unremarkable.The visualized portions of the humerus, proximal ulna and proximalradius is normal. The bone marrow is age appropriate. No signalabnormality or periostitis.IMPRESSION :Focal perforation within the biceps tendon at the musculotendinousjuncti on. There is thickening of the tendon proximally with a shortsegment longitudinal split tear noted. Distally the tendon is normal.The insertion is normal.Focal fluid collection possibly due to a seroma or prior hematoma nearthe musculotendinous junction.Interstitial edema within the biceps muscle.No abnormality at the shoulder ---- Electronic Signature on File ----Signed By: Sam [email or web address] ictated: 04/22/2018 1:36 PMSigned: 04/23/2018 4:26 PM Reported By: DUSTIN HEREDIA M.D. Signed By: DUSTIN HEREDIA M.D. [facility] 03-20-2018 Albumin mass conc 4.4 g/dL Normal 3.2-5.0 [facility] Comment on above: Performed By: #### L 500.44388 ####[facility] [id number] [place], [place] [address]Ig# [phone] Albumin/Globulin mass ratio 1.6 {ratio} Normal 0.8-2.0 [facility] Comment on above: Performed By: #### L 500.81153 ####[facility] [id number] [place], [place] [address]Xp# [phone] ALK PHOS 97 U/L Normal 45-117 [facility] Comment on above: Performed By: #### L 500.40643 ####[facility] [id number] [place], [place] [address]So# [phone] ALT enzyme act/vol 38 U/L Normal 13-61 [facility] Comment on above: Result Comment: RESU LTS MAY BE FALSELY DEPRESSED AFTER THE ADMINISTRATION OFSULFASALAZINE AND/OR SULFAPYRIDINE. Performed By: #### L 500.30532 ####[facility] [id number] [place] [address]Gl# [phone] BILI DIRECT 0.15 MG/DL Normal 0.00-0.20 [facility] Comment on above: Performed By: #### L 500.38948 ####[facility] [id number] [place], [place] [address]Km# [phone] BILI TOTAL 0.5 MG/DL Normal 0.2-1.0 [facility] Comment on above: Performed By: #### L 500.32136 ####[facility] [id number] [place], [place] [address]Tz# [phone] Globulin Calculated mass conc (S) 2.9 g/dL Normal 2.2-4.2 [facility] Comment on above: Performed By: #### L 500.67386 ####[facility] [id number] [place], [place] [address]Vi# [phone] Protein mass conc 7.3 g/dL Normal 6.0-8.5 [facility] Comment on above: Performed By: #### L 500.32403 ####[facility] [id number] [place], [place] [address]Qh# [phone] SGOT (AST) 27 U/L Normal 8-34 [facility] Comment on above: Result Comment: RESU LTS MAY BE FALSELY DEPRESSED AFTER THE ADMINISTRATION OFSULFASALAZINE AND/OR SULFAPYRIDINE. Performed By: #### L 500.56998 ####[facility] [id number] [place], [place] [address]Hp# [phone] LIVERon 06-20-2017 Albumin mass conc 4.3 g/dL Normal 3.2-5.0 [facility] Comment on above: Performed By: #### L 500.07084 ####[facility] [id number] [place], [place] [address]Xg# [phone] Albumin/Globulin mass ratio 1.3 {ratio} Normal 0.8-2.0 [facility] Comment on above: Performed By: #### L 500.15852 ####[facility] [id number] [place], [place] [address]Zs# [phone] ALK PHOS 118 U/L High 45-117 [facility] Comment on above: Performed By: #### L 500.87573 ####[facility] [id number] [place], [place] [address]Rt# [phone] ALT enzyme act/vol 88 U/L High 13-61 [facility] Comment on above: Result Comment: RESU LTS MAY BE FALSELY DEPRESSED AFTER THE ADMINISTRATION OFSULFASALAZINE AND/OR SULFAPYRIDINE. Performed By: #### L 500.04666 ####[facility] [id number] [place], [place] [address]Ii# [phone] BILI DIRECT 0.18 MG/DL Normal 0.00-0.20 [facility] Comment on above: Performed By: #### L 500.02406 ####[facility] [id number] [place], [place] [address]Tb# [phone] BILI TOTAL 0.6 MG/DL Normal 0.2-1.0 [facility] Comment on above: Performed By: #### L 500.23347 ####[facility] [id number] [place], [place] [address]Eg# [phone] Globulin Calculated mass conc (S) 3.3 g/dL Normal 2.2-4.2 [facility] Comment on above: Performed By: #### L 500.33997 ####[facility] [id number] [place], [place] [address]Wd# [phone] Protein mass conc 7.6 g/dL Normal 6.0-8.5 [facility] Comment on above: Performed By: #### L 500.18594 ####[facility] [id number] [place], [place] [address]Jz# [phone] SGOT (AST) 41 U/L High 8-34 [facility] Comment on above: Result Comment: RESU LTS MAY BE FALSELY DEPRESSED AFTER THE ADMINISTRATION OFSULFASALAZINE AND/OR SULFAPYRIDINE. Performed By: #### L 500.00870 ####[facility] [id number] [place], [place] [address]Vb# [phone] DDI VIBRATION CONTROLLED TRA NSIENT ELASTOGRAPHY (VCTE) [facility] Vital Signs Date Time Vital Sign Value Performing Clinician Khadar schwartz 12-31-2022 18:59-0400 Body weight 86.64 kg Merrill Velasquez MD Work Phone: [facility] 12-31-2022 18:59-0400 Diastolic blood pressure 70 mm[Hg] Merrill Velasquez MD Work Phone: [facility] 12-31-2022 18:59-0400 Heart rate 64 /min Merrill Velasquez MD Work Phone: [facility] 12-31-2022 18:59-0400 Respiratory rate 18 /min Merrill Velasquez MD Work Phone: [facility] 12-31-2022 18:59-0400 Systolic blood pressure 116 mm[Hg] Merrill Velasquez MD Work Phone: [facility] 08-13-2022 18:48-0500 Body temperature 97.3 [degF] Merrill Velasquez MD Work Phone: [facility] 08-13-2022 18:48-0500 Body weight 87.09 kg Merrill Velasquez MD Work Phone: [facility] 08-13-2022 18:48-0500 Diastolic blood pressure 70 mm[Hg] Merrill Velasquez MD Work Phone: [facility] 08-13-2022 18:48-0500 Heart rate 68 /min Merrill Velasquez MD Work Phone: [facility] 08-13-2022 18:48-0500 SaO2% (BldA) [Mass fraction] 98 % Merrill Velasquez MD Work Phone: [facility] 08-13-2022 18:48-0500 Systolic blood pressure 118 mm[Hg] Merrill Velasquez MD Work Phone: [facility] 03-12-2022 11:01-0400 Body height 177.8 cm Monica Iraj PA-C Work Phone: [facility] 03-12-2022 11:01-0400 Body weight 88.45 kg Monica Iraj PA-C Work Phone: [facility] 03-12-2022 11:01-0400 Diastolic blood pressure 72 mm[Hg] Monica Iraj PA-C Work Phone: [facility] 03-12-2022 11:01-0400 Heart rate 60 /min Monica Iraj PA-C Work Phone: [facility] 03-12-2022 11:01-0400 Systolic blood pressure 114 mm[Hg] Monica Iraj PA-C Work Phone: [facility] 01-18-2022 19:33-0400 Respiratory rate 16 /min [facility] Work Phone: 01-18-2022 19:17-0400 Body height 180.34 cm [facility] Work Phone: 01-18-2022 19:17-0400 Body mass index (BMI) [Ratio] 27.1 kg/m2 [facility] Work Phone: 01-18-2022 19:17-0400 Body temperature 98 [degF] [facility] Work Phone: 01-18-2022 19:17-0400 Body weight 88.45 kg [facility] Work Phone: 01-18-2022 19:17-0400 Diastolic blood pressure 63 mm[Hg] [facility] Work Phone: 01-18-2022 19:17-0400 Heart rate 83 /min [facility] Work Phone: 01-18-2022 19:17-0400 SaO2% (BldA) [Mass fraction] 98 % [facility] Work Phone: 01-18-2022 19:17-0400 Systolic blood pressure 129 mm[Hg] [facility] Work Phone: Encounters Encounter Date Encounter Type Care Provider Facility Start: 04-27-2024 End: 04-27-2024 ambulatory Junior FAY [place] [place]: 04-27-2024 End: 04-27-2024 ambulatory Sasha Grant Facility:[facility] Start: 01-03-2023 ambulatory Merrill schmidt MD Work Phone: Internal Medicine [place] Comment on above: Question regarding V ITAMIN B12 BLOOD Start: 01-02-2023 End: 01-03-2023 ambulatory MERRILL VELASQUEZ Facility:[facility] Start: 12-31-2022 End: 01-01-2023 ambulatory MERRILL VELASQUEZ Facility:[facility] Start: 12-31-2022 End: 12-31-2022 Patient encounter procedure Merrill Velasquez MD Work Phone: Internal Medicine [place] Comment on above: Fatigue, unspecified type (Primary Dx); Mild intermittent asthma in adult without complication; History of treated hepatitis C. Start: 08-14-2022 End: 08-15-2022 ambulatory MERRILL VELASQUEZ Facility:[facility] Start: 08-13-2022 End: 08-13-2022 ambulatory MERRILL VELASQUEZ Facility:[facility] Start: 08-13-2022 End: 08-13-2022 Subsequent hospital visit by physician Cristiano [facility] [place] Work Phone: Radiology Comment on above: Dyspnea, unspecified type [R06.00] Start: 08-13-2022 End: 08-13-2022 Patient encounter procedure Merrill Velasquez MD Work Phone: Internal Medicine [place] Comment on above: Dyspnea, unspecified type (Primary Dx); History of pulmonary embolism; Mild intermittent asthma in adult without complication; History of treated hepatitis C. Start: 08-06-2022 End: 08-07-2022 ambulatory MONICA GALO Facility:[facility] Start: 08-01-2022 ambulatory Melony Wagner MD Work Phone: Hematology/Oncology Comment on above: Response Start: 07-31-2022 ambulatory Melony Wagner MD Work Phone: Hematology/Oncology Comment on above: Question Start: 05-09-2022 Telephone encounter [facility] Gal[facility] PA-C [facility] Comment on above: Orders Start: 05-08-2022 End: 05-08-2022 ambulatory MONICA GALO Facility:[facility] Start: 03-19-2022 End: 03-19-2022 ambulatory MERRILL VELASQUEZ Facility:[facility] Start: 03-12-2022 End: 03-12-2022 ambulatory MERRILL VELASQUEZ Facility:[facility] Start: 03-12-2022 End: 03-12-2022 Patient encounter procedure Monica Galo PA-C [facility] Comment on above: Chronic hepatitis C without hepatic coma (HCC) (Primary Dx) Start: 02-19-2022 End: 02-19-2022 ambulatory MERRILL VELASQUEZ Facility:[facility] Start: 01-18-2022 End: 01-18-2022 Emergency department patient visit [facility] Start: 12-14-2021 Telephone encounter Monica Iraj PA-C Work Phone: Gastroenterology [place] Comment on above: Patient Update Start: 11-21-2021 Telephone encounter Monica Iraj PA-C Work Phone: Gastroenterology [place] Comment on above: Medication Update Start: 10-23-2021 Telephone encounter Monica Iraj PA-C Work Phone: G[facility]enter[facility] [place] Comment on above: Patient Update Start: 10-16-2021 Refill Monica Prema n PA-C Work Phone: Gastroenterology [place] Comment on above: Refill Request Start: 10-09-2021 ambulatory Monica Prema n PA-C Work Phone: Gastroenterology [place] Comment on above: Hep c treatment Start: 09-28-2021 End: 09-28-2021 ambulatory Hepatology A5 Work Phone: Gastroenterology Start: 09-28-2021 End: 09-28-2021 Patient encounter procedure Hepatology Procedures [facility]5 Work Phone: [facility] Start: 09-25-2021 Telephone encounter Monica Iraj PA-C Work Phone: [facility] [place] Comment on above: Orders Start: 09-21-2021 End: 09-21-2021 Subsequent hospital visit by [place] [facility] Work Phone: Radiology Comment on above: Chronic hepatitis C without hepatic coma (HCC) [B18.2] Start: 12-27-2020 End: 12-27-2020 ambulatory [facility] Start: 09-05-2018 Emergency department patient visit UNKNOWN PROVIDER [facility] Start: 04-22-2018 Patient encounter procedure Pierre Jones Facility:[facility] Start: 03-20-2018 Patient encounter procedure Work Care Facility:[facility] Start: 06-20-2017 Patient encounter procedure Work Care Facility:[facility] Procedures Date Procedure Procedure Detail Performing Clinician Start: 08-13-2022 Radiologic exam ches t 2 views Merrill Velasquez MD Work Phone: Start: 01-18-2022 Plain x-ray of wrist Start: 09-28-2021 Liver elastography w /o imag w/i&r Monica Iraj PA-C Work Phone: Start: 09-21-2021 Us abdominal real ti me w/image limited Monica Iraj PA-C Work Phone: Start: 10-12-2020 Adult depression scr eening assessment Us 1 Work Phone: Start: 09-11-2018 Microscopic examinat ion of blood, culture UNKNOWN PROVIDER Comment on above: Order Comment: Speci men Source Comment:Blood Performed By: #### H EMDF, ESR, LACT3, CRP2, TROPN, CMP3 #### [facility] [address] [place] [address] Plan of Treatment Date Care Activity Detail Author Start: 06-29-2031 Urine microalbumin profile [facility] Start: 02-23-2024 Covid-19 Vaccine ( season) Covid-19 Vaccine ( season) [facility] Start: 02-23-2024 Influenza vaccination Influenza Vacc ine (#1) [facility] Start: 01-01-2024 ANNUAL PCP TEAM ENDOCRINOLOGY NURSE ESTHER DISEASE VISIT ANNUAL PCP TEAM CHRONIC DISEASE VISIT [facility] Start: 08-13-2023 ANNUAL PCP TEAM ENDOCRINOLOGY NURSE ESTHER DISEASE VISIT ANNUAL PCP TEAM CHRONIC DISEASE VISIT [facility] Start: 08-13-2023 COVID-19 VACCINE (#1) COVID-19 VACCI NE (#1) [facility] Comment on above: Postponed from 08/18 (Declined at this time) Start: 06-23-2023 DEPRESSION ASSESSMENT DEPRESSION ASS ESSMENT [facility] Comment on above: Postponed from 06/24 (Declined at this time) Start: 02-22-2023 Influenza vaccination INFLUENZA (#1) [facility] Start: 01-01-2023 End: 03-03-2023 CBC panel - Blood by Automated count CBC Lab Routine Fatigue, unspecified type Expected: 01/01/2023, Expires: 03/03/2023 [facility] Work Phone: Comment on above: Expected: 01/01/2023 , Expires: 03/03/2023 Start: 01-01-2023 End: 03-03-2023 Cobalamin (Vitamin B12) [Mass/volume] in Serum or Plasma VITAMIN B12 BLOOD Lab Routine Fatigue, unspecified type Expected: 01/01/2023, Expires: 03/03/2023 [facility] Work Phone: Comment on above: Expected: 01/01/2023 , Expires: 03/03/2023 Start: 01-01-2023 End: 03-03-2023 Comprehensive metabolic 2000 panel - Serum or Plasma COMP METABOLIC PANEL Lab Routine Fatigue, unspecified type Expected: 01/01/2023, Expires: 03/03/2023 [facility] Work Phone: Comment on above: Expected: 01/01/2023 , Expires: 03/03/2023 Start: 01-01-2023 End: 03-03-2023 Folate [Mass/volume] in Serum or Plasma FOLATE SERUM Lab Routine Fatigue, unspecified type Expected: 01/01/2023, Expires: 03/03/2023 [facility] Work Phone: Comment on above: Expected: 01/01/2023 , Expires: 03/03/2023 Start: 01-01-2023 End: 03-03-2023 Hepatitis C virus RNA [Units/volume] (viral load) in Serum or Plasma by JOHNATHON with probe detection HCV QUANT RNA BY PCR Lab Routine Fatigue, unspecified type History of treated hepatitis C. Expected: 01/01/2023, Expires: 03/03/2023 [facility] Work Phone: Comment on above: Expected: 01/01/2023 , Expires: 03/03/2023 Start: 01-01-2023 End: 03-03-2023 Testosterone [Mass/volume] in Serum or Plasma TESTOSTERONE TOTAL Lab Routine Fatigue, unspecified type Expected: 01/01/2023, Expires: 03/03/2023 [facility] Work Phone: Comment on above: Expected: 01/01/2023 , Expires: 03/03/2023 Start: 01-01-2023 End: 03-03-2023 Thyrotropin [Units/volume] in Serum or Plasma TSH BLD Lab Routine Fatigue, unspecified type Expected: 01/01/2023, Expires: 03/03/2023 [facility] Work Phone: Comment on above: Expected: 01/01/2023 , Expires: 03/03/2023 Start: 01-01-2023 End: 03-03-2023 Triglyceride [Mass/volume] in Serum or Plasma TRIGLYCERIDES BLD Lab Routine Fatigue, unspecified type Expected: 01/01/2023, Expires: 03/03/2023 [facility] Work Phone: Comment on above: Expected: 01/01/2023 , Expires: 03/03/2023 Start: 12-21-2022 Influenza vaccination INFLUENZA (#1) [facility] Comment on above: Postponed from 02/22 (Declined at this time) Start: 08-13-2022 End: 10-13-2022 CBC panel - Blood by Automated count CBC Lab Routine Dyspnea, unspecified type History of pulmonary embolism Expected: 08/13/2022, Expires: 10/13/2022 [facility] Work Phone: Comment on above: Expected: 08/13/2022 , Expires: 10/13/2022 Start: 08-13-2022 End: 10-13-2022 Fibrin D-dimer FEU [Mass/volume] in Platelet poor plasma D-DIMER Lab Routine Dyspnea, unspecified type History of pulmonary embolism Expected: 08/13/2022, Expires: 10/13/2022 [facility] Work Phone: Comment on above: Expected: 08/13/2022 , Expires: 10/13/2022 Start: 06-29-2022 ANNUAL PCP TEAM ENDOCRINOLOGY NURSE ESTHER DISEASE VISIT ANNUAL PCP TEAM CHRONIC DISEASE VISIT [facility] Start: 06-24-2022 DEPRESSION ASSESSMENT DEPRESSION ASS ESSMENT [facility] Start: 05-09-2022 End: 07-09-2022 Hepatic function 2000 panel - Serum or Plasma HEPATIC FUNCTION PNL Lab Routine Chronic hepatitis C without hepatic coma (HCC) Expected: 05/09/2022, Expires: 07/09/2022 [facility] Work Phone: Comment on above: Expected: 05/09/2022 , Expires: 07/09/2022 Start: 02-22-2022 Influenza vaccination C [facility] Start: 12-21-2021 Influenza vaccination INFLUENZA (#1) [facility] Comment on above: Postponed from 02/22 (Declined at this time) Start: 10-25-2021 End: 12-25-2021 HEPATIC FUNCTION PNL HEPATIC FUNCTION PNL Lab Routine Chronic hepatitis C without hepatic coma (HCC) Expected: 10/25/2021, Expires: 12/25/2021 [facility] Work Phone: Comment on above: Expected: 10/25/2021 , Expires: 12/25/2021 Start: 10-12-2021 Adult depression screening assessment DEPRESSION SCREENING [facility] Start: 06-24-2021 [facility]PRESSION [facility]ESSMENT [facility] Start: 2009 HEPATITIS A (1 of 2 - Risk 2-dose series) HEPATITIS A (1 of 2 - Risk 2-dose series) [facility] Start: 02-16-2008 Anxiety Screening Anxiety Screening [facility] Start: 02-16-2008 Depression Screening Depression Scre ening [facility] Start: 02-16-1996 PNEUMOCOCCAL (1 - PCV) PNEUMOCOCCAL (1 - PCV) [facility] Start: 1995 COVID-19 VACCINE (#1) COVID-19 VACCI NE (#1) [facility] Start: 1995 COVID-19 VACCINE (1) COVID-19 VACCIN E (1) [facility] Start: 1991 HEPATITIS A (1 of 2 - Risk 2-dose series) HEPATITIS A (1 of 2 - Risk 2-dose series) [facility] Start: 1990 COVID-19 VACCINE (#1) COVID-19 VACCI NE (#1) [facility] End: 10-16-2022 HEPATIC FUNCTION PNL HEPATIC FUNCTION PNL Lab Routine Chronic hepatitis C without hepatic coma (HCC) Every 3 months for 4 Occurrences starting 10/17/2021 until 10/16/2022 [facility] Work Phone: Comment on above: Every 3 months for 4 Occurrences starting 10/17/2021 until 10/16/2022 End: 10-16-2022 Hepatitis C virus RNA [Units/volume] (viral load) in Serum or Plasma by JOHNATHON with probe detection HCV QUANT RNA BY PCR Lab Routine Chronic hepatitis C without hepatic coma (HCC) Every 3 months for 4 Occurrences starting 10/17/2021 until 10/16/2022 [facility] Work Phone: Comment on above: Every 3 months for 4 Occurrences starting 10/17/2021 until 10/16/2022 Patient Education ED Contusion, Upper Extremity ED Laceration Small or ... [facility] Work Phone: Patient referral [facility] Work Phone: End: 09-12-2023 Radiologic exam chest 2 views XR CHEST 2V FRONTAL/LAT Radiology Routine Dyspnea, unspecified type History of pulmonary embolism 1 Occurrences starting 08/13/2022 until 09/12/2023 [facility] Work Phone: Comment on above: 1 Occurrences starti ng 08/13/2022 until 09/12/2023 Radiologic exam ches t 2 views XR CHEST 2V FRONTAL/LAT Radiology Routine Dyspnea, unspecified type History of pulmonary embolism 08/13/2022 7:38 PM EST [facility] Work Phone: [facility] Immunizations Immunization Date Immunization Notes Care Provider Brittney bright 06-29-2021 tetanus and diphther ia toxoids, adsorbed, preservative free, for adult use (5 Lf of tetanus toxoid and 2 Lf of diphtheria toxoid) 1 Work Phone: [facility] Work Phone: 06-02-2018 influenza virus vaccine, unspecified formulation Xr [place] Work Phone: [facility] 09-20-2005 tetanus toxoid, reduced diphtheria toxoid, and acellular pertussis vaccine, adsorbed Us 1 Work Phone: [facility] 04-05-2004 hepatitis B vaccine, pediatric or pediatric/adolescent dosage Us 1 Work Phone: [facility] Work Phone: 03-29-2003 measles, mumps and rubella virus vaccine Us 1 Work Phone: [facility] Work Phone: 06-09-1996 hepatitis B vaccine, pediatric or pediatric/adolescent dosage Us 1 Work Phone: [facility] Work Phone: 07-15-1995 hepatitis B vaccine, pediatric or pediatric/adolescent dosage Us 1 Work Phone: [facility] Work Phone: 07-15-1995 measles, mumps and rubella virus vaccine Us 1 Work Phone: [facility] Work Phone: 07-15-1995 trivalent poliovirus vaccine, live, oral Us 1 Work Phone: [facility] Work Phone: 07-19-1992 diphtheria, tetanus toxoids and pertussis vaccine Us 1 Work Phone: [facility] Work Phone: 08-25-1991 measles, mumps and rubella virus vaccine Us 1 Work Phone: [facility] Work Phone: 01-08-1991 diphtheria, tetanus toxoids and pertussis vaccine Us 1 Work Phone: [facility] Work Phone: 01-08-1991 haemophilus influenz ae type b vaccine, conjugate unspecified formulation Us 1 Work Phone: [facility] Work Phone: 01-08-1991 trivalent poliovirus vaccine, live, oral Us 1 Work Phone: [facility] Work Phone: 1990 diphtheria, tetanus toxoids and pertussis vaccine Us 1 Work Phone: [facility] Work Phone: 1990 haemophilus influenz ae type b vaccine, conjugate unspecified formulation Us 1 Work Phone: [facility] Work Phone: 1990 trivalent poliovirus vaccine, live, oral Us 1 Work Phone: [facility] Work Phone: 1990 diphtheria, tetanus toxoids and pertussis vaccine Us 1 Work Phone: [facility] Work Phone: 1990 trivalent poliovirus vaccine, live, oral Us 1 Work Phone: [facility] Work Phone: NEGATED: Highlighted row has not occurred!10-18-2020 hepatitis B vaccine, adult dosage Us 1 Work Phone: [facility] Work Phone: Payers Date Payer Category Payer Self-pay [id number] 2022 Medicaid [id number] 2020 Medicaid [employer] [id number] 2020-Present [phone] [address] [place] [address] Medicaid [id number] 2020 Medicaid [id number] 2017 Unknown [id number] 1990 Unknown [id number] Unknown [id number] Unknown Unknown SELF PAY INSURANCE [id number] Unknown [id number] Unknown [id number] Social History Date Type Detail Facility Start: 09-15-2015 End: 03-19-2022 Tobacco smoking status NHIS Ex-smoker [facility] Start: 09-14-2013 End: 09-14-2014 History of tobacco use Current smoker [facility] Start: 09-14-2013 End: 09-14-2014 History of tobacco use Cigarette Smoker [facility] Start: 09-15-2015 End: 07-06-2022 Cigarettes smoked current (pack per day) - Reported 0.5 [facility] Start: 09-15-2015 End: 03-19-2022 Tobacco use and exposure User of smokeless tobacco [facility] History of tobacco use Chews Tobacco [facility] Start: 08-23-2021 End: 08-13-2022 Alcohol intake Current drinker of alcohol (finding) [facility] Start: 06-29-2021 End: 08-12-2022 History SDOH Alcohol Frequency 2 [facility] Start: 06-29-2021 End: 08-12-2022 History SDOH Alcohol Std Drinks 1 [facility] Start: 06-29-2021 History SDOH Alcohol Comment 2 beers monthly [facility] Start: 07-16-2020 End: 08-12-2022 History SDOH Social Connections Living 3 [facility] Start: 06-29-2021 History SDOH Physical Activity DPW 7 [facility] Start: 06-29-2021 History SDOH Physical Activity MPS 12 [facility] Start: 07-16-2020 End: 08-12-2022 History SDOH Financial 4 [facility] Start: 07-15-2020 Education 14 [facility] Start: 1990 Sex Assigned At Male [facility] Start: 09-11-2021 End: 03-12-2022 Exposure to SARS-CoV-2 (event) Not sure [facility] Start: 01-18-2022 Tobacco smoking status OKIS Unknown if ever smoked [facility] Work Phone: Start: 12-07-2018 None [facility] Work Phone: Start: 07-15-2020 Spouse/ Significant Other [facility] Work Phone: Start: 08-12-2022 History SDOH Physical Activity DPW 5 [facility] Start: 08-12-2022 History SDOH Physical Activity MPS 6 [facility] Start: 07-06-2022 End: 08-12-2022 Social connection and isolation panel [facility] Do you belong to any clubs or organizations such as caodaism groups, unions, [employer] or athletic groups, or school groups? Yes [facility] Are you now , , , , never or living with a partner? [facility] How often to you hav e a drink containing alcohol? Monthly or less [facility] How many standard dr inks containing alcohol do you have on a typical day? 3 or 4 [facility] How often do you hav e 6 or more drinks on 1 occasion? Never [facility] How hard is it for y ou to pay for the very basics like food, housing, medical care, and heating Not very hard [facility] Adult Depression Screening Assessment 0 [facility] Work Phone: Do you feel stress - tense, restless, nervous, or anxious, or unable to sleep at night because your mind is troubled all the time - these days [OSQ] Not at all [facility] (I/We) worried wheth er (my/our) food would run out before (I/we) got money to buy more. Never true [facility] In the past 12 month s, was there a time when you were not able to pay the mortgage or rent on time? No [facility] Start: 07-23-2020 Gender identity Identifies as male gender (finding) [facility] Start: 07-23-2020 Sexual orientation Heterosexual (finding) [facility] Clinical Notes 10-26-2005 to 12-31-2022 Merrill Velasquez MD - 12/31/2022 7:27 PM EDTJasmina Sorto RT(R) - 08/13/2022 7:30 PM ESTPatient InstructionsVictor Olivia Velasquez MD - 08/13/2022 7:09 PM EST Note Date & Type Note Facility 12-31-2022 Note HNO ID: [id number] Author: Merrill Velasquez MD Service: ? Author Type: Physician Type: Progress Notes Filed: 12/31/2022 7:52 PM Note Text: This note was created using [employer]. Subjective Francis Fajardo is a 32 year old male. He has noted bothersome fatigue for the past 3 months. This was lack of drive and energy. There was some loss of libido. 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 He continued to work out 5 days per week, running and weight lifting. Sleep was good. He did not feel sad. No new stressors were noted. ASTHMA CONTROL TEST Date: 12/31/2022 In the last 4 weeks, how much of the time did your asthma keep you from getting as much done at work or home that you wanted to do? None of the time (5) In the last 4 weeks, how often have you had shortness of breath? Not at all (5) In the last 4 weeks, how often did your asthma symptoms (wheezing, coughing, shortness of breath, chest tightness or pain) wake you up at night or earlier than usual? Not at all (5) In the last 4 weeks, how often have you used your rescue inhaler or nebulizer medication (such as Albuterol, Proventil, Ventolin, Maxair, Xoponex, or Primatene Mist)? Not at all (5) In the last 4 weeks, how would you rate your asthma control? Well controlled (4) Total: more than 20 1) Snoring? Yes. 2) Tired? No. 3) Observed apnea? No. 4) Pressure (Hypertension)? No. 5) BMI>45? No. 6) Age>50? No. 7) Neck circumference >40cm? No. 8) Gender male? Yes. Conclude: Total 3 or more positive responses? No. Depression Screening 10/12/2020 08/12/2022 12/31/2022 PHQ-2 Score 0 0 0 PHQ-9 Score - 1 - Depression screening tool completed and reviewed. Based on score and interview, patient is not at risk for depression. Screening tool discussed with patient, and I recommended no further intervention at this time. Review of Systems Constitutional: Negative for fever. HENT: Negative. Respiratory: Negative for cough, shortness of breath and wheezing. Cardiovascular: Negative. Gastrointestinal: Negative for blood in stool, diarrhea, nausea and vomiting. Genitourinary: Negative for difficulty urinating and dysuria. Musculoskeletal: Negative. Neurological: Negative. Psychiatric/Behavioral: Negative for dysphoric mood and sleep disturbance. The patient is not nervous/anxious. ACTIVE PROBLEM LIST Mild Intermittent Asthma in Adult Without Complication History of treated hepatitis C. Social History Tobacco Use Smoking status: Former Packs/day: 0.50 Years: 1.00 Total pack years: 0.50 Types: Cigarettes Quit date: 09/14/2014 Years since quittin.3 Smokeless tobacco: Current Types: Chew Substance Use Topics Alcohol use: Yes Comment: 2 beers monthly Drug use: Not Currently Types: Crack Cocaine, IV Comment: none since 20s. Current Outpatient Medications Medication Sig multivitamin with minerals (MEN'S ONE DAILY) tablet Take 1 tablet by mouth once daily. omega-3 fatty acids/fish oil (FISH OIL OMEGA 3-6-9 ORAL) Take by mouth. cyanocobalamin, vitamin B-12, (VITAMIN B-12 ORAL) Take by mouth. albuterol HFA (PROVENTIL HFA, VENTOLIN HFA) 90 mcg/actuation inhaler Inhale 2 Puffs as instructed every 4 hours as needed. mometasone-formoterol (DULERA) 100-5 mcg/actuation inhaler Inhale 2 Puffs as instructed twice daily. multivitamin tablet Take 1 tablet by mouth once daily. No current facility-administered medications for this visit. Objective BP 116/70 (BP Site: Left Arm, BP Position: Sitting, BP Cuff Size: Large Adult) Pulse 64 Resp 18 Wt 86.6 kg (191 lb) BMI 27.41 kg/m? Physical Exam Constitutional: General: He is not in acute distress. Appearance: He is not ill-appearing. HENT: Head: Normocephalic. Eyes: Conjunctiva/sclera: Conjunctivae normal. Cardiovascular: Rate and Rhythm: Normal rate and regular rhythm. Heart sounds: No murmur heard. No gallop. Pulmonary: Effort: Pulmonary effort is normal. Breath sounds: Normal breath sounds. Abdominal: Palpations: Abdomen is soft. There is no mass. Tenderness: There is no abdominal tenderness. Hernia: No hernia is present. There is no hernia in the left inguinal area or right inguinal area. Genitourinary: Penis: Normal and circumcised. Testes: Normal. Epididymis: Right: Normal. Musculoskeletal: Cervical back: No tenderness. Lymphadenopathy: Cervical: No cervical adenopathy. Lower Body: No right inguinal adenopathy. No left inguinal adenopathy. Neurological: Mental Status: He is alert. Assessment and Plan 1. Fatigue, unspecified type - ICD9: 780.79, ICD10: R53.83 (primary diagnosis) Etiology not clear. - DEPRESSION SCREENING/ASSESSMENT - CBC - COMP METABOLIC PANEL - VITAMIN B12 BLOOD - FOLATE SERUM - TSH BLD - TESTOSTERONE TOTAL- If this is a potential concern, follow up testing will be needed. - TRIGLYCERIDES BLD - HCV QUANT RNA BY PCR 2. Mild intermitte (more content not included)... [facility] 12-31-2022 History of Presen t illness Narrative This note was created using [employer]. Subjective Francis Fajardo is a 32 year old male. He has noted bothersome fatigue for the past 3 months. This was lack of drive and energy. There was some loss of libido. 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 He continued to work out 5 days per week, running and weight lifting. Sleep was good. He did not feel sad. No new stressors were noted. ASTHMA CONTROL TEST Date: 12/31/2022 In the last 4 weeks, how much of the time did your asthma keep you from getting as much done at work or home that you wanted to do? None of the time (5) In the last 4 weeks, how often have you had shortness of breath? Not at all (5) In the last 4 weeks, how often did your asthma symptoms (wheezing, coughing, shortness of breath, chest tightness or pain) wake you up at night or earlier than usual? Not at all (5) In the last 4 weeks, how often have you used your rescue inhaler or nebulizer medication (such as Albuterol, Proventil, Ventolin, Maxair, Xoponex, or Primatene Mist)? Not at all (5) In the last 4 weeks, how would you rate your asthma control? Well controlled (4) Total: more than 20 1) Snoring? Yes. 2) Tired? No. 3) Observed apnea? No. 4) Pressure (Hypertension)? No. 5) BMI>45? No. 6) Age>50? No. 7) Neck circumference >40cm? No. 8) Gender male? Yes. Conclude: Total 3 or more positive responses? No. Depression Screening 10/12/2020 08/12/2022 12/31/2022 PHQ-2 Score 0 0 0 PHQ-9 Score - 1 - Depression screening tool completed and reviewed. Based on score and interview, patient is not at risk for depression. Screening tool discussed with patient, and I recommended no further intervention at this time. Review of Systems Constitutional: Negative for fever. HENT: Negative. Respiratory: Negative for cough, shortness of breath and wheezing. Cardiovascular: Negative. Gastrointestinal: Negative for blood in stool, diarrhea, nausea and vomiting. Genitourinary: Negative for difficulty urinating and dysuria. Musculoskeletal: Negative. Neurological: Negative. Psychiatric/Behavioral: Negative for dysphoric mood and sleep disturbance. The patient is not nervous/anxious. ACTIVE PROBLEM LIST Mild Intermittent Asthma in Adult Without Complication History of treated hepatitis C. Social History Tobacco Use Smoking status: Former Packs/day: 0.50 Years: 1.00 Total pack years: 0.50 Types: Cigarettes Quit date: 09/14/2014 Years since quittin.3 Smokeless tobacco: Current Types: Chew Substance Use Topics Alcohol use: Yes Comment: 2 beers monthly Drug use: Not Currently Types: Crack Cocaine, IV Comment: none since 20s. Current Outpatient Medications Medication Sig multivitamin with minerals (MEN'S ONE DAILY) tablet Take 1 tablet by mouth once daily. omega-3 fatty acids/fish oil (FISH OIL OMEGA 3-6-9 ORAL) Take by mouth. cyanocobalamin, vitamin B-12, (VITAMIN B-12 ORAL) Take by mouth. albuterol HFA (PROVENTIL HFA, VENTOLIN HFA) 90 mcg/actuation inhaler Inhale 2 Puffs as instructed every 4 hours as needed. mometasone-formoterol (DULERA) 100-5 mcg/actuation inhaler Inhale 2 Puffs as instructed twice daily. multivitamin tablet Take 1 tablet by mouth once daily. No current facility-administered medications for this visit. Objective BP 116/70 (BP Site: Left Arm, BP Position: Sitting, BP Cuff Size: Large Adult) Pulse 64 Resp 18 Wt 86.6 kg (191 lb) BMI 27.41 kg/m Physical Exam Constitutional: General: He is not in acute distress. Appearance: He is not ill-appearing. HENT: Head: Normocephalic. Eyes: Conjunctiva/sclera: Conjunctivae normal. Cardiovascular: Rate and Rhythm: Normal rate and regular rhythm. Heart sounds: No murmur heard. No gallop. Pulmonary: Effort: Pulmonary effort is normal. Breath sounds: Normal breath sounds. Abdominal: Palpations: Abdomen is soft. There is no mass. Tenderness: There is no abdominal tenderness. Hernia: No hernia is present. There is no hernia in the left inguinal area or right inguinal area. Genitourinary: Penis: Normal and circumcised. Testes: Normal. Epididymis: Right: Normal. Musculoskeletal: Cervical back: No tenderness. Lymphadenopathy: Cervical: No cervical adenopathy. Lower Body: No right inguinal adenopathy. No left inguinal adenopathy. Neurological: Mental Status: He is alert. Assessment and Plan 1. Fatigue, unspecified type - ICD9: 780.79, ICD10: R53.83 (primary diagnosis) Etiology not clear. - DEPRESSION SCREENING/ASSESSMENT - CBC - COMP METABOLIC PANEL - VITAMIN B12 BLOOD - FOLATE SERUM - TSH BLD - TESTOSTERONE TOTAL- If this is a potential concern, follow up testing will be needed. - TRIGLYCERIDES BLD - HCV QUANT RNA BY PCR 2. Mild intermittent asthma in adult without complication - ICD9: 493.90, ICD10: J45.20 - Mild intermittent asthma stable - ALBUTEROL SULFATE HFA 90 MCG/ACTUATION AEROSOL INHALER - MOMETASONE-FORMOTEROL HFA 100 MCG-5 MCG/ACTUATION AEROSOL INHALER 3. History of treated hepatitis C. - ICD9: V12.09, ICD10: Z86.19 After the visit, I decided to retest in case of relapse causing symptom. - HCV QUANT RNA BY PCR Merrill Velasquez MD documented in this encounter [facility] 08-13-2022 Note HNO ID: [id number] Author: Jasmina Sorto RT(R) Service: Nuclear Medicine Author Type: Technologist Type: Progress Notes Filed: 08/13/2022 7:39 PM Note Text: Radiology Service Progress Note PATIENT NAME: Francis Fajardo DATE OF SERVICE: August 13, 2022 TIME: 7:33 PM PATIENT IDENTITY VERIFICATION COMPLETED USING TWO (2) IDENTIFIERS: Name and Date of confirmed by patient verbally. FALL SCREENING: Has the patient had 2 falls in the last year or 1 fall with injury or currently using an Ambulatory Assistive Device (Walker, Cane, Wheelchair, Crutches, etc.)? No PATIENT GENDER DATA: Male PATIENT RELEVANT IMPLANT DATA REVIEWED: Not Applicable RADIOLOGY DEPARTMENT: General X-ray: Exam(s) Completed: Chest X-Ray PERIPHERAL IV DATA: Not applicable SIGNED BY: RT Asael(R) August 13, 2022 7:33 PM [facility] 08-13-2022 Note HNO ID: [id number] Author: Merrill Velasquez MD Service: ? Author Type: Physician Type: Progress Notes Filed: 08/14/2022 7:17 AM Note Text: This note was created using [employer]. Subjective Francis Fajardo is a 32 year old male with his spouse. He started experiencing dyspnea qualified as inability to take a deep breath 5 days ago. There was no specific trigger or respiratory illness, and his asthma had been controlled. There was no decrease in his work or exercise capacity. 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 I saw him once a year ago and referred him to pulmonary, which he did not pursue. Review of Systems Constitutional: Negative for chills, fatigue and fever. HENT: Negative. Respiratory: Negative for cough and wheezing. Cardiovascular: Negative for chest pain, palpitations and leg swelling. Gastrointestinal: Negative. Psychiatric/Behavioral: Negative for behavioral problems and dysphoric mood. The patient is not nervous/anxious. ACTIVE PROBLEM LIST Mild Intermittent Asthma in Adult Without Complication History of treated hepatitis C. Current Outpatient Medications Medication Sig multivitamin with minerals (MEN'S ONE DAILY) tablet Take 1 tablet by mouth once daily. omega-3 fatty acids/fish oil (FISH OIL OMEGA 3-6-9 ORAL) Take by mouth. cyanocobalamin, vitamin B-12, (VITAMIN B-12 ORAL) Take by mouth. albuterol HFA (PROVENTIL HFA, VENTOLIN HFA) 90 mcg/actuation inhaler Inhale 2 Puffs as instructed every 4 hours as needed. mometasone-formoterol (DULERA) 100-5 mcg/actuation inhaler Inhale 2 Puffs as instructed twice daily. multivitamin tablet Take 1 tablet by mouth once daily. No current facility-administered medications for this visit. Social History Tobacco Use Smoking status: Former Packs/day: 0.50 Years: 1.00 Pack years: 0.50 Types: Cigarettes Quit date: 09/14/2014 Years since quittin.9 Smokeless tobacco: Current Types: Chew Substance Use Topics Alcohol use: Yes Comment: 2 beers monthly Drug use: Not Currently Types: Crack Cocaine, IV Comment: none since 20s. Objective BP 118/70 (BP Site: Left Arm, BP Position: Sitting, BP Cuff Size: Large Adult) Pulse 68 Temp 36.3 ?C (97.3 ?F) (Temporal) Wt 87.1 kg (192 lb) SpO2 98% BMI 27.55 kg/m? Physical Exam Constitutional: Appearance: Normal appearance. HENT: Nose: Nose normal. Mouth/Throat: Pharynx: Oropharynx is clear. Eyes: General: No scleral icterus. Cardiovascular: Rate and Rhythm: Normal rate and regular rhythm. Pulmonary: Effort: Pulmonary effort is normal. No respiratory distress. Breath sounds: Normal breath sounds. No wheezing or rales. Musculoskeletal: Right lower leg: No edema. Left lower leg: No edema. Lymphadenopathy: Cervical: No cervical adenopathy. Neurological: Mental Status: He is alert. Assessment and Plan 1. Dyspnea, unspecified type - ICD9: 786.09, ICD10: R06.00 (primary diagnosis) - XR CHEST 2V FRONTAL/LAT - CBC - D-DIMER - Other recommendations will depend on test results. 2. History of pulmonary embolism - ICD9: V12.55, ICD10: Z86.711 - XR CHEST 2V FRONTAL/LAT - CBC - D-DIMER 3. Mild intermittent asthma in adult without complication - ICD9: 493.90, ICD10: J45.20 Mild intermittent Asthma stable - Continue current meds - Avoidance of triggers recommended 4. History of treated hepatitis C. - ICD9: V12.09, ICD10: Z86.19 S/p Epclusa. Merrill Velasquez MD [facility] 08-13-2022 History of Presen t illness Narrative Radiology Service Progress Note PATIENT NAME: Francis Fajardo DATE OF SERVICE: August 13, 2022 TIME: 7:33 PM PATIENT IDENTITY VERIFICATION COMPLETED USING TWO (2) IDENTIFIERS: Name and Date of confirmed by patient verbally. FALL SCREENING: Has the patient had 2 falls in the last year or 1 fall with injury or currently using an Ambulatory Assistive Device (Walker, Cane, Wheelchair, Crutches, etc.)? No PATIENT GENDER DATA: Male PATIENT RELEVANT IMPLANT DATA REVIEWED: Not Applicable RADIOLOGY DEPARTMENT: General X-ray: Exam(s) Completed: Chest X-Ray PERIPHERAL IV DATA: Not applicable SIGNED BY: RT Asael(R) August 13, 2022 7:33 PM documented in this encounter [facility] 08-13-2022 Instructions Merrill Velasquez MD - 08/13/2022 7:24 PM EST Consider pneumonia vaccine due to asthma. documented in this encounter [facility] 08-13-2022 History of Presen t illness Narrative This note was created using [employer]. Subjective Francis Fajardo is a 32 year old male with his spouse. He started experiencing dyspnea qualified as inability to take a deep breath 5 days ago. There was no specific trigger or respiratory illness, and his asthma had been controlled. There was no decrease in his work or exercise capacity. 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 I saw him once a year ago and referred him to pulmonary, which he did not pursue. Review of Systems Constitutional: Negative for chills, fatigue and fever. HENT: Negative. Respiratory: Negative for cough and wheezing. Cardiovascular: Negative for chest pain, palpitations and leg swelling. Gastrointestinal: Negative. Psychiatric/Behavioral: Negative for behavioral problems and dysphoric mood. The patient is not nervous/anxious. ACTIVE PROBLEM LIST Mild Intermittent Asthma in Adult Without Complication History of treated hepatitis C. Current Outpatient Medications Medication Sig multivitamin with minerals (MEN'S ONE DAILY) tablet Take 1 tablet by mouth once daily. omega-3 fatty acids/fish oil (FISH OIL OMEGA 3-6-9 ORAL) Take by mouth. cyanocobalamin, vitamin B-12, (VITAMIN B-12 ORAL) Take by mouth. albuterol HFA (PROVENTIL HFA, VENTOLIN HFA) 90 mcg/actuation inhaler Inhale 2 Puffs as instructed every 4 hours as needed. mometasone-formoterol (DULERA) 100-5 mcg/actuation inhaler Inhale 2 Puffs as instructed twice daily. multivitamin tablet Take 1 tablet by mouth once daily. No current facility-administered medications for this visit. Social History Tobacco Use Smoking status: Former Packs/day: 0.50 Years: 1.00 Pack years: 0.50 Types: Cigarettes Quit date: 09/14/2014 Years since quittin.9 Smokeless tobacco: Current Types: Chew Substance Use Topics Alcohol use: Yes Comment: 2 beers monthly Drug use: Not Currently Types: Crack Cocaine, IV Comment: none since 20s. Objective BP 118/70 (BP Site: Left Arm, BP Position: Sitting, BP Cuff Size: Large Adult) Pulse 68 Temp 36.3 C (97.3 F) (Temporal) Wt 87.1 kg (192 lb) SpO2 98% BMI 27.55 kg/m Physical Exam Constitutional: Appearance: Normal appearance. HENT: Nose: Nose normal. Mouth/Throat: Pharynx: Oropharynx is clear. Eyes: General: No scleral icterus. Cardiovascular: Rate and Rhythm: Normal rate and regular rhythm. Pulmonary: Effort: Pulmonary effort is normal. No respiratory distress. Breath sounds: Normal breath sounds. No wheezing or rales. Musculoskeletal: Right lower leg: No edema. Left lower leg: No edema. Lymphadenopathy: Cervical: No cervical adenopathy. Neurological: Mental Status: He is alert. Assessment and Plan 1. Dyspnea, unspecified type - ICD9: 786.09, ICD10: R06.00 (primary diagnosis) - XR CHEST 2V FRONTAL/LAT - CBC - D-DIMER - Other recommendations will depend on test results. 2. History of pulmonary embolism - ICD9: V12.55, ICD10: Z86.711 - XR CHEST 2V FRONTAL/LAT - CBC - D-DIMER 3. Mild intermittent asthma in adult without complication - ICD9: 493.90, ICD10: J45.20 Mild intermittent Asthma stable - Continue current meds - Avoidance of triggers recommended 4. History of treated hepatitis C. - ICD9: V12.09, ICD10: Z86.19 S/p Epclusa. Merrill Velasquez MD documented in this encounter [facility] 05-09-2022 Miscellaneous Notes New HFP order placed. Not sure if patient needs to go back to the lab to get this drawn. ----- Message from Giuliana Garza sent at 05/09/2022 1:43 PM EST ----- Please place a new order for HEPATIC FUNCTION PANEL, if clinically indicated. This notification serves to inform you that a test(s) have been canceled for reason(s) denoted on the result report within the Epic chart. Thank you. If any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 FoundNo Family History Records FoundNo Family History Records FoundNo Family History Records Found Advance Directives No Advanced Directives Records Found Advance Directive Response Recorded Date/ Time Living Will No January 18, 2022 7:20pm Power of Tag Press Operator No January 18 7:20pm Chief Complaint and Reason for Visit Chief Complaint hand Additional Source Comments (unrecognized sect ion and content) No Status Records FoundNo Status Records FoundNo Status Records FoundNo Status Records FoundNo Status Records Found INFORMATION SOURCE (unrecogn ized section and content) DATE CREATED AUTHOR 06/08/2018 [facility] DATE CREATED AUTHOR AUTHOR'S ORGANIZ ATION 09/13/2018 [facility] DATE CREATED AUTHOR AUTHOR'S ORGANIZ ATION 01/13/2021 [facility] DATE CREATED AUTHOR AUTHOR'S ORGANIZ ATION 01/03/2023 [facility] DATE CREATED AUTHOR AUTHOR'S ORGANIZ ATION 05/21/2024 [facility] Source Comments (unrecognize d section and content) In the event this informatio n is protected by the Federal Confidentiality of Alcohol and Drug Abuse Patient Records regulations: The Federal rules restrict any use of the information to criminally investigate or prosecute any alcohol or drug abuse patient.[facility] the event this information is protected by the Federal Confidentiality of Alcohol and Drug Abuse Patient Records regulations: The Federal rules restrict any use of the information to criminally investigate or prosecute any alcohol or drug abuse patient.[facility] the event this information is protected by the Federal Confidentiality of Alcohol and Drug Abuse Patient Records regulations: The Federal rules restrict any use of the information to criminally investigate or prosecute any alcohol or drug abuse patient.[facility] CenterIn the event this information is protected by the Federal Confidentiality of Alcohol and Drug Abuse Patient Records regulations: The Federal rules restrict any use of the information to criminally investigate or prosecute any alcohol or drug abuse patient.[facility] CenterIn the event this information is protected by the Federal Confidentiality of Alcohol and Drug Abuse Patient Records regulations: The Federal rules restrict any use of the information to criminally investigate or prosecute any alcohol or drug abuse patient.[facility] Center[facility] the event this information is protected by the Federal Confidentiality of Alcohol and Drug Abuse Patient Records regulations: The Federal rules restrict any use of the information to criminally investigate or prosecute any alcohol or drug abuse patient.[facility] Center[facility] the event this information is protected by the Federal Confidentiality of Alcohol and Drug Abuse Patient Records regulations: The Federal rules restrict any use of the information to criminally investigate or prosecute any alcohol or drug abuse patient.[facility] CenterIn the event this information is protected by the Federal Confidentiality of Alcohol and Drug Abuse Patient Records regulations: The Federal rules restrict any use of the information to criminally investigate or prosecute any alcohol or drug abuse patient.[facility] CenterIn the event this information is protected by the Federal Confidentiality of Alcohol and Drug Abuse Patient Records regulations: The Federal rules restrict any use of the information to criminally investigate or prosecute any alcohol or drug abuse patient.[facility] CenterIn the event this information is protected by the Federal Confidentiality of Alcohol and Drug Abuse Patient Records regulations: The Federal rules restrict any use of the information to criminally investigate or prosecute any alcohol or drug abuse patient.[facility] CenterIn the event this information is protected by the Federal Confidentiality of Alcohol and Drug Abuse Patient Records regulations: The Federal rules restrict any use of the information to criminally investigate or prosecute any alcohol or drug abuse patient.[facility] CenterIn the event this information is protected by the Federal Confidentiality of Alcohol and Drug Abuse Patient Records regulations: The Federal rules restrict any use of the information to criminally investigate or prosecute any alcohol or drug abuse patient.[facility] CenterIn the event this information is protected by the Federal Confidentiality of Alcohol and Drug Abuse Patient Records regulations: The Federal rules restrict any use of the information to criminally investigate or prosecute any alcohol or drug abuse patient.[facility] CenterIn the event this information is protected by the Federal Confidentiality of Alcohol and Drug Abuse Patient Records regulations: The Federal rules restrict any use of the information to criminally investigate or prosecute any alcohol or drug abuse patient.[facility] CenterIn the event this information is protected by the Federal Confidentiality of Alcohol and Drug Abuse Patient Records regulations: The Federal rules restrict any use of the information to criminally investigate or prosecute any alcohol or drug abuse patient.[facility] CenterIn the event this information is protected by the Federal Confidentiality of Alcohol and Drug Abuse Patient Records regulations: The Federal rules restrict any use of the information to criminally investigate or prosecute any alcohol or drug abuse patient.[facility] Reason for Visit (unrecogniz ed section and content) Reason Comments Radiology US Specialty Diagnoses / Procedures Referred By Contac t Referred To Contact US IMAGING Diagnoses Chronic hepatitis C without hepatic coma (HCC) Procedures US ABD RT UPPER QUADRANT US ABDOMINAL REAL TIME W/IMAGE LIMITED Monica Galo PA-C [address] [place] [address] Us Imaging Referral ID Status Reason Start Date Expiration Date V isits Requested Visits Authorized [id number] Closed Auto-Generate d Referral 08/23/2021 09/22/2022 1 1 Reason Comments Orders Reason Onset Date Comments Refill Request 10/16/2021 Reason Comments Patient Update Reason Comments Medication Update Reason Comments Hepatitis C Treatment complete. Labs 02/19/22 Reason Comments Breathing Problem Reason Comments Fatigue Care Teams (unrecognized sec tion and content) Vortex Operator Relationship Specialty Start Date End Date Merrill Velasquez MD [address] [place] [address] PCP - General Internal Medicine 06/29/21 Vortex Operator Relationship Specialty Start Date End Date Merrill Velasquez MD [facility] [place] [address] PCP - General Internal Medicine 06/29/21 Vortex Operator Relationship Specialty Start Date End Date Merrill Velasquez MD [address] [place] [address] PCP - General Internal Medicine 06/29/21 Vortex Operator Relationship Specialty Start Date End Date Merrill Velasquez MD [address] [place] [address] PCP - General Internal Medicine 06/29/21 Vortex Operator Relationship Specialty Start Date End Date Merrill Velasquez MD [facility] [place] [address] PCP - General Internal Medicine 06/29/21 Vortex Operator Relationship Specialty Start Date End Date Merrill Velasquez MD [address] [place] [address] PCP - General Internal Medicine 06/29/21 Vortex Operator Relationship Specialty Start Date End Date Merrill Velasquez MD [address] [facility] [place] [address] PCP - General Internal Medicine 06/29/21 Vortex Operator Relationship Specialty Start Date End Date Merrill Velasquez MD [address] [facility] [place] [address] PCP - General Internal Medicine 06/29/21 Vortex Operator Relationship Specialty Start Date End Date Merrill Velasquez MD [address] [facility] [place] [address] PCP - General Internal Medicine 06/29/21 Vortex Operator Relationship Specialty Start Date End Date Merrill Velasquez MD [address] [facility] [place] [address] PCP - General Internal Medicine 06/29/21 Vortex Operator Relationship Specialty Start Date End Date Merrill Velasquez MD [address] [facility] [place] [address] PCP - General Internal Medicine 06/29/21 Vortex Operator Relationship Specialty Start Date End Date Merrill Velasquez MD [address] [facility] [place] [place] [address] PCP - General Internal Medicine 06/29/21 Vortex Operator Relationship Specialty Start Date End Date Merrill Velasquez MD [address] [facility] [place] [address] PCP - General Internal Medicine 06/29/21 Goals (unrecognized section and content) Goals may be documented in a n alternate section FOR RECORDS PERTAINING TO PATIENTS WHO ARE OR HAVE BEEN ENROLLED IN A CHEMICAL DEPENDENCY/SUBSTANCEABUSE PROGRAM, SOME INFORMATION MAY BE OMITTED. This clinical summary was aggregated from multiple sources. Caution should be exercised in using it in the provision of clinical care. This summary normalizes information from multiple sources, and as a consequence, information in this document may materially change the coding, format and clinical context of patient data. In addition, data may be omitted in some cases. CLINICAL DECISIONS SHOULD BE BASED ON THE PRIMARY CLINICAL RECORDS. [employer] [facility] provides no warranty or guarantee of the accuracy or completeness of information in this document.
[2025-02-15 21:00] VITALS: BP 126/76; PULSE 68; RESP 19; O2SAT 100
[2025-02-15 21:49] VITALS: BP 126/76; PULSE 61; RESP 18; TEMP 36.6; O2SAT 99
== END 2025-02-15 21:52 | disposition home or self-care (01) ==
PROVIDERS: Emergency Provider Emergency Medicine; PCP Internal Medicine; Visit Provider Emergency Medicine
DX: S01.112A Laceration without foreign body of left eyelid and periocular area, initial encounter (principal); F17.220 Nicotine dependence, chewing tobacco, uncomplicated; S09.90XA Unspecified injury of head, initial encounter; Z23 Encounter for immunization; W21.03XA Struck by baseball, initial encounter
CPT/HCPCS: 12013; 70450; 70486; 90471; 90715; 99283